=== PATIENT | male | born 1935 | race Caucasian/White ===

== ENCOUNTER 2021-08-16 15:01 | Inpatient (IN) | payer MEDICARE, BC ==
[2021-08-16] MEDS ORDERED: HYDROmorphone 0.5 MG/0.5 ML SYRINGE IVP STA (15:13)
--- NOTE | 2021-08-16 15:34 | ED ---
General Adult HPI - General Chief complaint: Extremity Injury, Lower Stated complaint: fall/hip pain Time Seen by Provider: 08/16/21 15:05 Source: patient, EMS, RN notes reviewed Mode of arrival: EMS Limitations: physical limitation - History of Present Illness Initial comments: Patient is a pleasant 86-year-old male presenting to the emergency department following a fall. Incident occurred prior to arrival. Patient's prosthetic leg got caught on a rug and he fell to the ground on his left hip. No head injury or loss of consciousness. No neck or back pain. Discomfort is severe with movement, mild to moderate at rest. No chest pain or dyspnea. 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 No history of previous injury. - Related Data Allergies Allergy/AdvReac Type Severity Reaction Status Date / Time No Known Allergies Allergy Verified 08/16/21 15:17 Review of Systems ROS Statement: Those systems with pertinent positive or pertinent negative responses have been documented in the HPI. ROS Other: All systems not noted in ROS Statement are negative. Constitutional: Denies: fever Eyes: Denies: eye pain ENT: Denies: ear pain Respiratory: Denies: cough Cardiovascular: Denies: chest pain Endocrine: Denies: fatigue Gastrointestinal: Denies: abdominal pain Genitourinary: Denies: dysuria Musculoskeletal: Reports: as per HPI Skin: Denies: rash Neurological: Denies: weakness Past Medical History Past Medical History: Coronary Artery Disease (CAD), Hypertension, Myocardial Infarction ([place]) History of Any Multi-Drug Resistant Organisms: None Reported Past Surgical History: Back Surgery, Coronary Bypass/CABG, Heart Catheterization With Stent, Orthopedic Surgery Additional Past Surgical History / Comment(s): Left bka, triple bypass, left shoulder surgery, 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 Past Psychological History: No Psychological Hx Reported Smoking Status: Never smoker Past Alcohol Use History: None Reported Past Drug Use History: None Reported General Exam Limitations: physical limitation General appearance: alert, in no apparent distress Head exam: Present: normocephalic Eye exam: Present: other (False eye on the right) ENT exam: Present: other (Appearance of surgical changes left ear) Neck exam: Present: normal inspection. Absent: tenderness Respiratory exam: Present: normal lung sounds bilaterally Cardiovascular Exam: Present: regular rate, normal rhythm GI/Abdominal exam: Present: soft. Absent: tenderness Extremities exam: Present: tenderness (Left lateral and anterior hip.), other ((BKA L) Neurological exam: Present: alert. Absent: motor sensory deficit Psychiatric exam: Present: normal affect, normal mood Skin exam: Present: normal color Course Vital Signs 08/16/21 15:06 Temperature 97.8 F Pulse Rate 89 Respiratory 18 Rate Blood Pressure 166/67 O2 Sat by Pulse 94 L Oximetry Medical Decision Making - Medical Decision Making Patient reevaluated. Patient and family updated. Case discussed with Dr. Morales, who will admit covering, orthopedics. - Radiology Data Radiology results: image reviewed (Chest x-ray shows possible atelectasis. Postoperative changes. X-ray left hip and pelvis shows left femoral neck fracture.) Disposition Clinical Impression: Femoral neck fracture Disposition: ADMITTED IP TO THIS HOSP Is patient prescribed a controlled substance at d/c from ED?: No Decision Time: 15:59
--- NOTE | 2021-08-16 15:52 | XR ---
EXAMINATION TYPE: XR Hip LT and AP Pelvis DATE OF EXAM: 08/16/2021 COMPARISON: NONE HISTORY: Trauma and pain TECHNIQUE: A single AP view of the pelvis is obtained. Two views of the hip are obtained. FINDINGS: There is subcapital proximal left femoral fracture with associated angulation and impactio n. No dislocation. Bone mineralization is reduced. Postop changes are noted to the lumbosacral spine, there is degenerative disc change. Osteophytic change noted in the right hip. Dense vascular calcifi cations are noted incidentally. IMPRESSION: Left hip fracture
--- NOTE | 2021-08-16 15:54 | XR ---
EXAMINATION TYPE: XR chest 1V DATE OF EXAM: 08/16/2021 COMPARISON: NONE HISTORY: Trauma and pain TECHNIQUE: Single frontal view of the chest is obtained. FINDINGS: There is no focal air space opacity, pleural effusion, or pneumothorax seen. The cardiac silhouette size is within normal limits. Patient is post median sternotomy. Sternal wire fracture n oted most inferiorly. Strand-like densities are present within the lungs possibly reflecting scarring or atelectasis. The aorta is dense. Biapical pleural thickening is noted. The osseous structures are intact. IMPRESSION: Postop changes. There may be some atelectasis or scarring greater in the right lung.
[2021-08-16] MEDS ORDERED: NALOXONE 0.4 MG/ML 1 ML VIAL IV PRN (16:11)
[2021-08-16] MEDS: HYDROmorphone 0.5 MG/0.5 ML SYRINGE IVP PRN (16:30)
[2021-08-16 16:57] LABS: Basophils # (A) 0.1 k/uL (0-0.2); Basophils % (A) 0 %; Eosinophils # (A) 0.1 k/uL (0-0.7); Eosinophils % (A) 1 %; HCT 34.1 % (39.0-53.0); HGB 11.1 gm/dL (13.0-17.5); Lymphocytes # (A) 1.6 k/uL (1.0-4.8); Lymphocytes % (A) 14 %; MCH 31.3 pg (25.0-35.0); MCHC 32.5 g/dL (31.0-37.0); MCV 96.3 fL (80.0-100.0); Mean Platelet Volume 8.3; Monocytes # (A) 0.8 k/uL (0-1.0); Monocytes % (A) 7 %; Neutrophils # (A) 8.9 k/uL (1.3-7.7); Neutrophils % (A) 77 %; Platelet Count 221 k/uL (150-450); RBC 3.54 m/uL (4.30-5.90); RDW 12.7 % (11.5-15.5); WBC 11.6 k/uL (3.8-10.6)
[2021-08-16 17:14] LABS: INR 0.9 (<1.2); Prothrombin Time 9.8 sec (9.0-12.0)
[2021-08-16 17:19] LABS: Partial Thromboplastin Time 21.7 sec (22.0-30.0)
--- NOTE | 2021-08-16 17:35 | P.HPOR ---
History of Present Illness H&P Date: 08/16/21 Chief Complaint: left hip pain Patient is a 86-year-old male presenting to the emergency room with left hip pain status post fall. Patient says he was at home when he stubbed his toe and he fell and landed on his left hip. Patient does say he uses a prosthetic on left leg with an amputation up to his left knee. Patient says he normally ambulates independently with cane to aid in assistance. Patient states the pain is mostly located at the lateral portion of the left hip as well as anterior portion of the hip. Patient denies radiation of pain anywhere. Patient denies any other trauma/injury throughout the rest body sustained from the fall. Patient does say he takes Plavix for blood thinner. Patient does say he has had multiple orthopedic surgeries in the past as well as a triple bypass and a stent in his heart. Patient denies chest pain, fever, shortness of breath, nausea, vomiting, change in vision, loss of bowel/bladder control, saddle anesthesia. 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 Past Psychological History: No Psychological Hx Reported Smoking Status: Never smoker Past Alcohol Use History: None Reported Past Drug Use History: None Reported Medications and Allergies Allergies Allergy/AdvReac Type Severity Reaction Status Date / Time No Known Allergies Allergy Verified 08/16/21 17:22 Physical Examination Inspection: Shortening and external rotation of left leg. Amputation up to left knee No evidence of open fractures. Negative for any ecchymosis. Negative for any significant discoloration other than as noted. Negative for nodules, erythe ma. Sensation: Sensation is intact in bilateral upper extremities symmetric, equal in distribution. Sensation is intact in bilateral lower extremities symmetric, equal in distribution Palpation: Significant tenderness to palpation over the proximal left femur laterally and anteriorly. Nontender to palpation throughout rest of exam Range of motion: Limited range of motion in the left leg due to patient being in significant pain. Decreased hip flexion in left leg. Bilateral upper extremities full range of motion in elbow extension/flexion as well as shoulder internal and external rotation abduction and forward elevation. Right lower ext remity full range of motion and knee flexion extension and hip flexion extension. Motor: Strength 5 out of 5 in upper extremities as well as sider mechanic strength. Right lower extremity 5/5 in resisted flexion extension and hip flexion extension. Left leg exam limited due to patient being in significant amount of pain Neurovascular status/tensioning signs: Refill under 3 seconds bilaterally in lower and upper extremities. Skin mildly warm to touch in hands bilaterally as well as bilaterally in the lower extremities. Dorsalis pedis pulses intact, 2+ bilaterally. Radial pulses intact, 2+ bilaterally. Negative Homans bilaterally. Negative Yolanda's bilaterally. Negative clonus upon dorsifl exing feet bilaterally. Results - Labs Labs: Abnormal Lab Results - Last 24 Hours (Table) 08/16/21 08/16/21 Range/Units 16:50 16:50 WBC 11.6 H (3.8-10.6) k/uL RBC 3.54 L (4.30-5.90) m/uL Hgb 11.1 L (13.0-17.5) gm/dL Hct 34.1 L (39.0-53.0) % Neutrophils # 8.9 H (1.3-7.7) k/uL APTT 21.7 L (22.0-30.0) sec H & H 08/16/21 Range/Units 16:50 Hgb 11.1 L (13.0-17.5) gm/dL Hct 34.1 L (39.0-53.0) % Coagulation 08/16/21 Range/Units 16:50 INR 0.9 (<1.2) Result Diagrams: 08/16/21 16:50 Assessment and Plan Assessment: 1. Left femoral neck fracture status post fall 2. Multiple medical comorbidities Plan: 1. Left femoral neck fracture status post fall - surgery scheduled for tomorrow, 1left hip hemiarthroplasty. Patient does need medical and cardiac clearance 2. Appreciate medical management and cardiac management - patient needs medical and cardiac clearance 3. Pain management - stable at this time. Continue oral and IV pain medication 4. PT/OT - nonweightbearing left leg Time with Patient: Less than 30
--- NOTE | 2021-08-16 17:53 | P.CONS ---
History of Present Illness - History of Present Illness Physical pleasant 86 years old male with past medical history of coronary artery disease status post stent placement and CABG, Hypertension, Presents because of fall today and injured his left hip Patient is visiting from [place] has history of left leg amputation about 43 ye ars ago secondary to work accident uses artificial leg today he was working on his porch when his toe got twisted and his son grabbed him but he fell on his left side and hit his left hip area followed by severe pain but he could walk forequarter block after that. He denies any dizziness, chest pain or syncope. No change in urine or bowel habits. No fever Patient uses to follow-up with Dr. Lynn border measurer and cutter before he goes to a [place] many years ago Vital showing elevated blood pressure 180/77, rest of vitals looks stable, he is saturating 94% on room air. mild leukocytosis of 11.6. hemoglobin 11.1. platelet normal EKG showing sinus rhythm which is normal at 83 BPM with first-degree AV block and no significant ST-T changes, right bundle branch block and QTC of 465. Chest x-ray: No acute process. Postop changes. There may be some atelectasis or scarring greater on the right lung Hip and pelvis x-ray: Left hip fracture He got Dilaudid and emergency room Review of Systems CONSTITUTIONAL: No fever, no malaise, no fatigue. HEENT: No recent visual problems or hearing problems. Denied any sore throat. CARDIOVASCULAR: No orthopnea, PND, no palpitations, no syncope. PULMONARY: No shortness of breath, no cough, no hemoptysis. GASTROINTESTINAL: No diarrhea, no nausea, no vomiting, no abdominal pain. Normoactive bowel sounds. NEUROLOGICAL: No headaches, no weakness, no numbness. HEMATOLOGICAL: Denies any bleeding or petechiae. GENITOURINARY: Denies any burning micturition, frequency, or urgency. MUSCULOSKELETAL/RHEUMATOLOGICAL: Denies any joint pain, swelling, or any muscle pain. ENDOCRINE: Denies any polyuria or polydipsia. 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 Past Psychological History: No Psychological Hx Reported Smoking Status: Never smoker Past Alcohol Use History: None Reported Past Drug Use History: None Reported Medications and Allergies Allergies Allergy/AdvReac Type Severity Reaction Status Date / Time No Known Allergies Allergy Verified 08/16/21 15:17 Physical Exam Vitals: Vital Signs Temp Pulse Resp BP Pulse Ox 08/16/21 16:34 87 18 180/77 94 L 08/16/21 15:06 97.8 F 89 18 166/67 94 L Intake and Output 08/16/21 08/16/21 08/16/21 06:59 14:59 22:59 Other: Weight 70.307 kg GENERAL: The patient is alert and oriented x3, not in any acute distress. Well developed, well nourished. HEENT: Pupils are round and equally reacting to light. EOMI. No scleral icterus. No conjunctival pallor. Normocephalic, atraumatic. No pharyngeal erythema. No thyromegaly. CARDIOVASCULAR: S1 and S2 present. No murmurs, rubs, or gallops. PULMONARY: Chest is clear to auscultation, no wheezing or crackles. ABDOMEN: Soft, nontender, nondistended, normoactive bowel sounds. No palpable organomegaly. -MUSCULOSKELETAL: No joint swelling or deformity. Left hip tenderness. 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 NEUROLOGICAL: Gross neurological examination did not reveal any focal deficits. SKIN: No rashes. No petechiae Results CBC & Chem 7: 08/16/21 16:50 Labs: Abnormal Lab Results - Last 24 Hours (Table) 08/16/21 Range/Units 16:50 WBC 11.6 H (3.8-10.6) k/uL RBC 3.54 L (4.30-5.90) m/uL Hgb 11.1 L (13.0-17.5) gm/dL Hct 34.1 L (39.0-53.0) % Neutrophils # 8.9 H (1.3-7.7) k/uL Assessment and Plan Assessment: Fall, without losing consciousness. Could be mechanical Left hip fracture secondary to above history of coronary artery disease status post stent placement and triple vessel CABG Hypertension Plan: This Is a pleasant 86 years old male presents with fall and left hip fracture Resume blood pressure medication. Resume aspirin. Plavix is on hold until cleared by border measurer and cutter We'll ask for cardiology consult for preop evaluation as patient couldn't be high-risk for surgery Obtain urinalysis and Labs and medication were reviewed.. Continue same treatment. Continue with symptomatic treatment. Resume home medication. Monitor lytes and vitals. DVT and GI prophylaxis. Further recommendations depends on the clinical course of the patient DVT prophylaxis: Subcutaneous heparin GI Prophylaxis: Pepcid PT/OT: Pending Prognosis is guarded Thank you for consulting us, we will follow up with you
[2021-08-16 17:56] LABS: ALT 15 U/L (4-49); AST 29 U/L (17-59); African American GFR (CKD) >90 (>60 ml/min/1.73 sqM); Albumin 3.9 g/dL (3.5-5.0); Alkaline Phosphatase 78 U/L (38-126); Anion Gap 8 mmol/L; Blood Urea Nitrogen 25 mg/dL (9-20); Calcium 9.4 mg/dL (8.4-10.2); Carbon Dioxide 23 mmol/L (22-30); Chloride 107 mmol/L (98-107); Glucose 108 mg/dL (74-99); Non-African American GFR(CKD) 82 (>60 ml/min/1.73 sqM); Potassium 4.5 mmol/L (3.5-5.1); Sodium 138 mmol/L (137-145); Total Bilirubin 0.6 mg/dL (0.2-1.3); Total Protein 6.6 g/dL (6.3-8.2)
[2021-08-16] MEDS: HYDROmorphone 1 MG/ML 1 ML SYRINGE IVP PRN (19:02)
[2021-08-16] MEDS: amLODIPine 5 MG TAB PO SCH (19:03)
[2021-08-16 19:23] LABS: Appearance,Urine Clear (Clear); Bilirubin,Urine Negative (Negative); Blood,Urine Negative (Negative); Color,Urine Yellow; Glucose,Urine (UA) Negative (Negative); Ketones,Urine Negative (Negative); Leukocyte Esterase,Urine Negative (Negative); Nitrite,Urine Negative (Negative); Protein,Urine Negative (Negative); Specific Gravity,Urine 1.018 (1.001-1.035); Urobilinogen,Urine <2.0 mg/dL (<2.0)
[2021-08-16] MEDS: TAMSULOSIN 0.4 MG CAP.ER.24H PO SCH (22:16)
[2021-08-16] MEDS: MONTELUKAST 10 MG TAB PO SCH (22:16)
[2021-08-16] MEDS: METOPROLOL TARTRATE 25 MG TAB PO SCH (22:16)
[2021-08-16] MEDS: PRAVASTATIN SODIUM 80 MG TAB PO SCH (22:17)
[2021-08-16] MEDS: HEPARIN SODIUM,PORCINE/PF 5,000 UNIT/0.5 ML SYRINGE SQ SCH (22:17)
[2021-08-17] MEDS: LEVOTHYROXINE 50 MCG TAB PO SCH (06:14)
[2021-08-17] MEDS: HYDROmorphone 0.5 MG/0.5 ML SYRINGE IVP PRN ×2 (06:19→22:04)
[2021-08-17] MEDS: FAMOTIDINE 20 MG TAB PO SCH (08:24)
[2021-08-17] MEDS: ASPIRIN 81 MG PO SCH (08:24)
[2021-08-17] MEDS: HEPARIN SODIUM,PORCINE/PF 5,000 UNIT/0.5 ML SYRINGE SQ SCH (08:24)
[2021-08-17] MEDS: amLODIPine 5 MG TAB PO SCH (08:24)
[2021-08-17] MEDS: lisinopriL 20 MG TAB PO SCH (08:25)
[2021-08-17] MEDS: METOPROLOL TARTRATE 25 MG TAB PO SCH ×2 (08:40→21:07)
[2021-08-17 08:43] LABS: African American GFR (CKD) >90 (>60 ml/min/1.73 sqM); Anion Gap 5 mmol/L; Blood Urea Nitrogen 21 mg/dL (9-20); Calcium 9.3 mg/dL (8.4-10.2); Carbon Dioxide 26 mmol/L (22-30); Chloride 105 mmol/L (98-107); Glucose 123 mg/dL (74-99); Non-African American GFR(CKD) 83 (>60 ml/min/1.73 sqM); Potassium 4.9 mmol/L (3.5-5.1); Sodium 136 mmol/L (137-145)
[2021-08-17] MEDS: HYDROmorphone 1 MG/ML 1 ML SYRINGE IVP PRN ×2 (09:39→12:39)
--- NOTE | 2021-08-17 10:44 | ECHOF ---
Referral Reason:LV function MEASUREMENTS -------- HEIGHT: 182.9 cm WEIGHT: 70.3 kg BP: 144/67 RVIDd: 3.2 cm (< 3.3) IVSd: 1.1 cm (0.6 - 1.1) LVIDd: 4.4 cm (3.9 - 5.3) LVPWd: 1.2 cm (0.6 - 1.1) IVSs: 1.6 cm LVIDs: 3.2 cm LVPWs: 1.5 cm LA Diam: 3.3 cm (2.7 - 3.8) LAESV Index (A-L): 24.72 ml/m Ao Diam: 3.3 cm (2.0 - 3.7) AV Cusp: 1.1 cm (1.5 - 2.6) MV EXCURSION: 15.792 mm (> 18.000) MV EF SLOPE: 61 mm/s (70 - 150) EPSS: 0.6 cm MV E Zak: 0.85 m/s MV DecT: 178 ms MV A Zak: 0.94 m/s MV E/A Ratio: 0.91 AV maxP.34 mmHg AV meanP.90 mmHg RAP: 5.00 mmHg RVSP: 32.85 mmHg FINDINGS -------- Sinus rhythm. This was a technically adequate study. The left ventricular size is normal. There is borderline concentric left ventricular hypertrophy. Overall left ventricular systolic function is normal with, an EF between 60 - 65 %. The right ventricle is normal in size. Normal LA size by volume 22+/-6 ml/m2. The right atrium is normal in size. Interatrial and interventricular septum intact. There is moderate aortic valve sclerosis. There is mild aortic regurgitation. There is moderate a ortic stenosis present. Peak/mean gradient across the Aortic Valve is 48.34mmHg / 29.90mmHg. Mild mitral annular calcification present. There is trace mitral regurgitation. Mild tricuspid regurgitation present. Right ventricular systolic pressure is normal at < 35 mmHg. Trace/mild (physiologic) pulmonic regurgitation. The aortic root size is normal. IVC Not well visulized. There is no pericardial effusion. CONCLUSIONS -------- 1. The left ventricular size is normal. 2. There is borderline concentric left ventricular hypertrophy. 3. Overall left ventricular systolic function is normal with, an EF between 60 - 65 %. 4. There is moderate aortic valve sclerosis. 5. There is mild aortic regurgitation. 6. There is moderate aortic stenosis present. 7. Peak/mean gradient across the Aortic Valve is 48.34mmHg / 29.90mmHg. 8. Mild mitral annular calcification present. 9. There is trace mitral regurgitation. 10. Mild tricuspid regurgitation present. 11. Trace/mild (physiologic) pulmonic regurgitation. FINANCE LECTURER: Molly Lambert RDCS
[2021-08-17 11:12] LABS: Basophils # (A) 0.07 X 10*3/uL (0.00-0.10); Basophils % (A) 0.7 %; Eosinophils # (A) 0.36 X 10*3/uL (0.04-0.35); Eosinophils % (A) 3.4 %; HCT 33.7 % (39.6-50.0); HGB 10.9 g/dL (13.0-17.0); Lymphocytes # (A) 1.88 X 10*3/uL (0.90-5.00); Lymphocytes % (A) 17.7 %; MCH 30.8 pg (27.0-32.0); MCHC 32.3 g/dL (32.0-37.0); MCV 95.2 fL (80.0-97.0); Mean Platelet Volume 11.1 fL (9.5-12.2); Monocytes # (A) 1.16 X 10*3/uL (0.20-1.00); Monocytes % (A) 10.9 %; Neutrophils # (A) 7.14 X 10*3/uL (1.80-7.70); Neutrophils % (A) 66.9 %; Platelet Count 200 X 10*3/uL (140-440); RBC 3.54 X 10*6/uL (4.40-5.60); RDW 13.6 % (11.5-14.5); WBC 10.65 X 10*3/uL (4.50-10.00)
--- NOTE | 2021-08-17 11:25 | P.PN ---
Subjective Physical pleasant 86 years old male with past medical history of coronary artery disease status post stent placement and CABG, Hypertension, Presents because of fall today and injured his left hip Patient is visiting from [place] has history of left leg amputation about 43 years ago secondary to work accident uses artificial leg today he was working on his porch when his toe got twisted and his son grabbed him but he fell on his left side and hit his left hip area followed by severe pain but he could walk forequarter block after that. He denies any dizziness, chest pain or syncope. No change in urine or bowel habits. No fever Patient uses to follow-up with Dr. Lynn ibm bpm developer before he goes to a [place] many years ago Vital showing elevated blood pressure 180/77, rest of vitals looks stable, he is saturating 94% on room air. mild leukocytosis of 11.6. hemoglobin 11.1. platelet normal EKG showing sinus rhythm which is normal at 83 BPM with first-degree AV block and no significant ST-T changes, right bundle branch block and QTC of 465. Chest x-ray: No acute process. Postop changes. There may be some atelectasis or scarring greater on the right lung Hip and pelvis x-ray: Left hip fracture He got Dilaudid and emergency room 08/17/2021 Patient clinically same as yesterday with no change, he has pain in his left hip with movement only. He denies chest pain or dyspnea. His breathing is quiet. No GI or urinary symptoms. His vitals are stable. Blood pressure 144/67. And he is saturating 98% on room air. BMP is unremarkable and urine analysis is negative. CBC is still pending Patient has a Valdez catheter Echocardiogram showing ejection fraction of 60-65% with moderate aortic stenosis Patient is already on aspirin. Plavix is on hold until after surgery to be cleared by orthopedic team. As per staff ibm bpm developer team evaluated the patient already for his surgery Objective - Vital Signs Vital signs: Vital Signs Temp 98.1 F 08/17/21 07:00 Pulse 90 08/17/21 07:00 Resp 18 08/17/21 07:00 BP 144/67 08/17/21 07:00 Pulse Ox 98 08/17/21 07:00 Intake & Output 08/16/21 08/17/21 08/17/21 18:59 06:59 18:59 Output Total 700 Balance -700 Weight 70.307 kg 70.307 kg Output: Urine 700 Other: Voiding Method Indwelling Catheter Indwelling Catheter - Exam GENERAL: The patient is alert and oriented x3, not in any acute distress. Well developed, well nourished. HEENT: Pupils are round and equally reacting to light. EOMI. No scleral icterus. No conjunctival pallor. Normocephalic, atraumatic. No pharyngeal erythema. No thyromegaly. -CARDIOVASCULAR: S1 and S2 present. Systolic murmurs, rubs, or gallops. PULMONARY: Chest is clear to auscultation, no wheezing or crackles. ABDOMEN: Soft, nontender, nondistended, normoactive bowel sounds. No palpable o rganomegaly. -MUSCULOSKELETAL: No joint swelling or deformity. Left hip tenderness. 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 NEUROLOGICAL: Gross neurological examination did not reveal any focal deficits. SKIN: No rashes. No petechiae - Labs CBC & Chem 7: 08/16/21 16:50 08/17/21 07:00 Labs: Abnormal Lab Results - Last 24 Hours (Table) 08/16/21 08/16/21 08/16/21 Range/Units 16:50 16:50 16:50 WBC 11.6 H (3.8-10.6) k/uL RBC 3.54 L (4.30-5.90) m/uL Hgb 11.1 L (13.0-17.5) gm/dL Hct 34.1 L (39.0-53.0) % Neutrophils # 8.9 H (1.3-7.7) k/uL APTT 21.7 L (22.0-30.0) sec Sodium (137-145) mmol/L BUN 25 H (9-20) mg/dL Glucose 108 H (74-99) mg/dL 08/17/21 Range/Units 07:00 WBC (3.8-10.6) k/uL RBC (4.30-5.90) m/uL Hgb (13.0-17.5) gm/dL Hct (39.0-53.0) % Neutrophils # (1.3-7.7) k/uL APTT (22.0-30.0) sec Sodium 136 L (137-145) mmol/L BUN 21 H (9-20) mg/dL Glucose 123 H (74-99) mg/dL Assessment and Plan Assessment: Fall, without losing consciousness. Could be mechanical Left hip fracture secondary to above history of coronary artery disease status post stent placement and triple vessel CABG Hypertension Moderate aortic stenosis Plan: This Is a pleasant 86 years old male presents with fall and left hip fracture Resume blood pressure medication. Resume aspirin. Plavix is on hold until cleared by orthopedic surgery team after the procedure cardiology consult evaluated the patient already for his surgery Patient is high-risk for this procedure brothers no absolute contraindication Labs and medication were reviewed.. Continue same treatment. Continue with symptomatic treatment. Resume home medication. Monitor lytes and vitals. DVT and GI prophylaxis. Further recommendations depends on the clinical course of the patient DVT prophylaxis: Subcutaneous heparin GI Prophylaxis: Pepcid PT/OT: Pending Prognosis is guarded Thank you for consulting us, we will follow up with you
--- NOTE | 2021-08-17 11:52 | P.CRDCN ---
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 He used to follow in the office with Dr. Lynn last seen in 2017, but moved to [place] and now follows with Dr. Matamoros there. We have been asked to see in consultation for preoperative evaluation. Patient presents emergency department after a fall. He is in [place] visiting family, he currently lives in [place]. He states he was walking outside and has an elevated cement sidewalk his prosthetic leg proceeded to get stuck, he didn't feel this, he ended up falling forward and he had an assisted fall with family member. X-ray of the pelvis revealed left hip fracture. Orthopedics evaluated the patient and plan for left hip hemiarthroplasty today. Patient family members at bedside. He states that he is very active at home normally prior to this incident, he is able to perform all his ADLs, go for walks without any difficulty. He most recently went to [facility] with his family members. He denies any chest pain, shortness of breath, lightheadedness, dizziness, palpitations or syncope. He denies dyspnea on exertion, orthopnea or PND. He states he likely follows up with Dr. Matamoros his steam generating powerplant mechanic in [place]. Since his stents placements he states he's been doing fairly well and his steam generating powerplant mechanic is monitoring his aortic stenosis. DIAGNOSTICS EKG reveals sinus rhythm, first-degree AV block, right bundle-branch block, heart rate 83 Echocardiogram revealed an EF of 6065 percent, mild aortic regurgitation, moderate aortic stenosis peak/mean gradient 48 mmHg/29 mmHg, trace mitral regurgitation, mild tricuspid regurgitation. Most recent stress test 2016 which revealed a small inferior wall fixed defect, no evidence of ischemia. Preserved LV function. Chest xray post median sternotomy, sternal fracture noted mostly inferiorly, aorta is dense, some atelectasis or scarring greater in the right lung. X-ray left hip and pelvis revealed left hip fracture. Laboratory reviewed, WBC 11.6, hemoglobin 11.1, platelets 221, sodium 136, potassium 4.9, BUN 21, serum creatinine 0.7, UA negative, COVID-19 PCR negative Current home cardiac medications include aspirin 81 mg daily, amlodipine 5 mg daily, Plavix 75 mg daily, Lopressor 25 mg twice a day, pravastatin 80 mg nightly REVIEW OF SYSTEMS At the time of my exam: CONSTITUTIONAL: Denies fever or chills. CARDIOVASCULAR: Denies chest pain, shortness of breath, orthopnea, PND or palpitations. RESPIRATORY: Denies cough. GASTROINTESTINAL: Denies abdominal pain, diarrhea, constipation, nausea or vomit ing. MUSCULOSKELETAL: +left hip pain NEUROLOGIC: Denies numbness, tingling, headacbe or weakness. ENDOCRINE: Denies fatigue, weight change, polydipsia or polyurina. GENITOURINARY: Denies burning, hematuria or urgency with micturation. HEMATOLOGIC: Denies history of anemia or bleeding. PHYSICAL EXAMINATION Blood pressure 144/67, heart rate 90, afebrile, maintaining saturations on 2 L nasal cannula CONSTITUTIONAL: No apparent distress. HEENT: Head is normocephalic. Pupils are equal, round. Sclerae anicteric. Mucous membranes of the mouth are moist. No JVD. No carotid bruit. CHEST EXAMINATION: Lungs are clear to auscultation. No chest wall tenderness is noted on palpation or with deep breathing. HEART EXAMINATION: Regular rate and rhythm. S1, S2 heard. Systolic murmur ABDOMEN: Soft, nontender. Positive bowel sounds. EXTREMITIES: left above the knee amputation, no lower extremity edma NEUROLOGIC EXAMINATION: Patient is awake, alert and oriented x3. ASSESSMENT Left femoral neck fracture Mechanical Fall Coronary artery disease status post 3 vessel CABG in 1999 ([id number]) and 2 stents placed 2 years ago Moderate Aortic stenosis Hypertension Dyslipidemia History of left leg amputation about 43 years ago secondary to work accident PLAN -Plan for left hip hemiarthroplasty today. -From a cardiology perspective, patient does have the following risk factors including ischemic heart disease, however, patient is able to perform >METs level of activity and does not have any acute cardiac conditions at this time. Patient is hemodynamically stable. Patient may proceed with surgery with no additional cardiac testing or procedures. -Patient did have his stents placed 2 years ago, ok to discontinue plavix and follow up with his primary steam generating powerplant mechanic Dr. Matamoros Nurse Practitioner note has been reviewed, I agree with a documented findings and plan of care. Patient was seen and examined. Past Medical History Past Medical History: Coronary Artery Disease (CAD), Hypertension, Myocardial Infarction (CT) Last Myocardial Infarction Date:: Unsure of date History of Any Multi-Drug Resistant Organisms: None Reported Past Surgical History: Back Surgery, Coronary Bypass/CABG, Heart Catheterization With Stent, Orthopedic Surgery Additional Past Surgical History / Comment(s): Left bka, triple bypass, left shoulder surgery, 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 Date of Last Stent Placement:: 2018 Past Psychological History: No Psychological Hx Reported Smoking Status: Never smoker Past Alcohol Use History: None Reported Past Drug Use History: None Reported Medications and Allergies Home Medications Medication Instructions Recorded Confirmed Type Aspirin EC [Ecotrin Low Dose] 81 mg PO DAILY 08/16/21 08/16/21 History Cetirizine HCl 10 mg PO DAILY 08/16/21 08/16/21 History Cholecalciferol [Vitamin D3 (10 10 mcg PO DAILY@119908/16/21 08/16/21 History Mcg = 400 Iu)] Clopidogrel [Plavix] 75 mg PO DAILY 08/16/21 08/16/21 History Cyanocobalamin (Vitamin B-12) 2,500 mcg SL DAILY@119908/16/21 08/16/21 History [Vitamin B-12] Famotidine 40 mg PO DAILY 08/16/21 08/16/21 History Ferrous Sulfate [Feosol] 325 mg PO DAILY@119908/16/21 08/16/21 History Fluticasone Nasal Holt [Flonase 1 spray EA NOSTRIL DAILY PRN 08/16/21 08/16/21 History Nasal Holt] Levothyroxine Sodium [Euthyrox] 50 mcg PO DAILY 08/16/21 08/16/21 History Metoprolol Tartrate [Lopressor] 25 mg PO BID 08/16/21 08/16/21 History Montelukast [Singulair] 10 mg PO HS 08/16/21 08/16/21 History [facility] Probiotic 1 tab PO DAILY@1200 08/16/21 08/16/21 History Pravastatin Sodium [Pravachol] 80 mg PO HS 08/16/21 08/16/21 History Ramipril 10 mg PO DAILY 08/16/21 08/16/21 History Tamsulosin HCl [Flomax] 0.4 mg PO HS 08/16/21 08/16/21 History Vit C/E/Zn/Coppr/Lutein/Zeaxan 1 cap PO BID 08/16/21 08/16/21 History [Preservision Areds 2 Softgel] amLODIPine [Norvasc] 5 mg PO DAILY 08/16/21 08/16/21 History Allergies Allergy/AdvReac Type Severity Reaction Status Date / Time No Known Allergies Allergy Verified 08/16/21 17:22 Physical Exam Vitals: Vital Signs Temp Pulse Pulse Resp BP BP Pulse Ox 08/17/21 07:00 98.1 F 90 18 144/67 98 08/17/21 01:20 98.7 F 82 18 166/73 98 08/17/21 01:15 98.7 F 82 18 166/73 98 08/17/21 01:10 98.7 F 82 18 166/73 98 08/16/21 22:20 114 H 18 170/83 99 08/16/21 20:13 99 20 177/82 98 08/16/21 18:10 93 18 183/79 100 08/16/21 16:34 87 18 180/77 94 L 08/16/21 15:06 97.8 F 89 18 166/67 94 L Intake and Output 08/16/21 08/17/21 08/17/21 22:59 06:59 14:59 Output Total 700 Balance -700 Output: Urine 700 Other: Voiding Method Indwelling Catheter Indwelling Catheter Weight 70.307 kg 70.307 kg Results 08/16/21 16:50 08/17/21 07:00 Cardiac Enzymes 08/16/21 Range/Units 16:50 AST 29 (17-59) U/L Coagulation 08/16/21 Range/Units 16:50 PT 9.8 (9.0-12.0) sec APTT 21.7 L (22.0-30.0) sec CBC 08/16/21 Range/Units 16:50 WBC 11.6 H (3.8-10.6) k/uL RBC 3.54 L (4.30-5.90) m/uL Hgb 11.1 L (13.0-17.5) gm/dL Hct 34.1 L (39.0-53.0) % Plt Count 221 (150-450) k/uL Comprehensive Metabolic Panel 08/16/21 08/17/21 Range/Units 16:50 07:00 Sodium 138 136 L (137-145) mmol/L Potassium 4.5 4.9 (3.5-5.1) mmol/L Chloride 107 105 (98-107) mmol/L Carbon Dioxide 23 26 (22-30) mmol/L BUN 25 H 21 H (9-20) mg/dL Creatinine 0.76 0.73 (0.66-1.25) mg/dL Glucose 108 H 123 H (74-99) mg/dL Calcium 9.4 9.3 (8.4-10.2) mg/dL AST 29 (17-59) U/L ALT 15 (4-49) U/L Alkaline Phosphatase 78 (38-126) U/L Total Protein 6.6 (6.3-8.2) g/dL Albumin 3.9 (3.5-5.0) g/dL Current Medications Generic Name Dose Route Start Last Admin Trade Name Freq PRN Reason Stop Dose Admin Amlodipine Besylate 5 mg 08/16/21 18:15 08/17/21 08:24 Amlodipine 5 Mg Tab PO Not Given DAILY [facility] Aspirin 81 mg 08/17/21 09:00 08/17/21 08:24 Aspirin 81 Mg PO Not Given DAILY [facility] Famotidine 40 mg 08/17/21 09:00 08/17/21 08:24 Famotidine 20 Mg Tab PO Not Given DAILY [facility] Heparin Sodium (Porcine) 5,000 unit 08/16/21 21:00 08/17/21 08:24 Heparin Sodium,Porcine/Pf 5,000 Unit/0.5 Ml Syringe SQ Not Given Q12HR [facility] Hydromorphone HCl 0.5 mg 08/16/21 16:11 08/17/21 06:19 Hydromorphone 0.5 Mg/0.5 Ml Syringe IVP 0.5 mg Q3HR PRN Administration Moderate Pain Hydromorphone HCl 1 mg 08/16/21 16:11 08/17/21 09:39 Hydromorphone 1 Mg/Ml 1 Ml Syringe IVP 1 mg Q3HR PRN Administration Severe Pain Levothyroxine Sodium 50 mcg 08/17/21 06:30 08/17/21 06:14 Levothyroxine 50 Mcg Tab PO 50 mcg DAILY@0630 [facility] Administration Lisinopril 40 mg 08/17/21 09:00 08/17/21 08:25 Lisinopril 20 Mg Tab PO Not Given DAILY [facility] Metoprolol Tartrate 25 mg 08/16/21 21:00 08/17/21 08:40 Metoprolol Tartrate 25 Mg Tab PO 25 mg BID [facility] Administration Montelukast Sodium 10 mg 08/16/21 21:00 08/16/21 22:16 Montelukast 10 Mg Tab PO 10 mg HS [facility] Administration Naloxone HCl 0.2 mg 08/16/21 16:11 Naloxone 0.4 Mg/Ml 1 Ml Vial IV Q2M PRN Opioid Reversal Pravastatin Sodium 80 mg 08/16/21 21:00 08/16/21 22:17 Pravastatin Sodium 80 Mg Tab PO 80 mg HS [facility] Administration Tamsulosin HCl 0.4 mg 08/16/21 21:00 08/16/21 22:16 Tamsulosin 0.4 Mg Cap.Er.24h PO 0.4 mg HS [facility] Administration Intake and Output 08/16/21 08/17/21 08/17/21 22:59 06:59 14:59 Output Total 700 Balance -700 Output: Urine 700 Other: Voiding Method Indwelling Catheter Indwelling Catheter Weight 70.307 kg 70.307 kg 08/16/21 16:50 08/17/21 07:00
[2021-08-17] MEDS ORDERED: SODIUM CHLORIDE 0.9% 700 ML IV ONE (13:38)
[2021-08-17] MEDS ORDERED: ONDANSETRON 4 MG/2 ML VIAL ONE (13:57)
[2021-08-17] MEDS ORDERED: ONDANSETRON 4 MG/2 ML VIAL IVP ONE ×2 (14:16)
[2021-08-17] MEDS ORDERED: DEXAMETHASONE SOD PHOSPHATE 4 MG/ML 1 ML VIAL IVP ONE (14:16)
[2021-08-17] MEDS ORDERED: SUCCINYLCHOLINE CHLORIDE 100 MG/5 ML SYR IV ONE (15:48)
[2021-08-17] MEDS ORDERED: fentaNYL (PF) 50 MCG/ML 2 ML AMP ONE (15:48)
[2021-08-17] MEDS ORDERED: PROPOFOL 10 MG/ML 20 ML VIAL IV ONE (15:48)
[2021-08-17] MEDS ORDERED: ceFAZolin 1,000 MG in SODIUM CHLORIDE 0.9% 1,000 ML IRRIGATION ONE (16:29)
[2021-08-17] MEDS ORDERED: LACTATED RINGERS 1,000 ML IV ONE (16:29)
[2021-08-17] MEDS ORDERED: NALOXONE 0.4 MG/ML 1 ML VIAL IV PRN (17:21)
[2021-08-17] MEDS ORDERED: HYDROmorphone 0.2 MG/1 ML SYRINGE IVP PRN (17:21)
--- NOTE | 2021-08-17 17:36 | P.OP ---
Date of Procedure: 08/17/21 Preoperative Diagnosis: Displaced left subcapital femoral neck fracture Postoperative Diagnosis: Same Procedure(s) Performed: Left hip hemiarthroplastypress-fitlateral approach Implants: Depuy Corail size [id number] collared press-fit femoral stem, 51 mm unipolar femoral head, -3 neck. Anesthesia: SALOMÓN Surgeon: Jeronimo Kang Commissary Helper #1: Gerardo Gonzalez Estimated Blood Loss (ml): 100 Pathology: other (Femoral head) Condition: stable Disposition: PACU Indications for Procedure: Patient is an 86-year-old male who presents after falling injuring his left hip. Upon evaluation he was noted to have evidence of a displaced left subcapital femoral neck fracture. Normally he is a community ambulator with a prosthesis for a left [id number] amputation. A discussion of the risks and benefits of operative intervention was made with patient and his family. He opted to proceed with surgery. Operative risks to include infection, neurovascular injury, development of blood clots, ligament discrepancy, fracture, instability and need for subsequent procedures was discussed. Informed consent was obtained. Operative Findings: As below Description of Procedure: The patient was brought to the operating room, and after induction of spinal anesthesia was placed in the lateral decubitus position. Bony prominences were appropriately padded. The pelvis was stabilized perpendicular to the floor with a pegboard. The left lower extremity was prepped and draped in normal fashion. A 12 cm incision was then made centered over the greater trochanter extending superiorly to level ASIS and distally along the femoral shaft. Skin and subcutaneous tissues were divided sharply. Electrocautery was used for hemostasis. The fascia hussain and gluteus mark fascia was split in line with the skin incision. Muscle fibers were bluntly dissected proximally. A self- retaining retractor was placed. The anterior and posterior margins of the gluteus medius muscles identified in the into two thirds detached the greater trochanter with electrocautery. The gluteus minimus tendon was identified and detached in a similar fashion. A T-shaped capsulotomy was performed. The cap sular flaps were tagged with #2 Ethibond suture. The femoral neck fracture was then identified. A lower neck cut was made at 45 the shaft with a sagittal saw to help facilitate head extraction. Head was then extracted with a corkscrew. It measured 51 millimeters . The acetabulum was inspected. No significant chondral injury was noted. Attention was then paid towards preparing the proximal femur. A box chisel was used to open the metaphyseal region. A canal finder was used to find the femoral canal. Sequential broaching was performed up to a size 11 broach with the leg perpendicular to the floor in 15 of anteversion. There was good rotational stability. A calcar mill was used to fashion the medial calcar. A -3 neck and to 1 mm unipolar head was placed. The hip was gently reduced. It was taken through range of motion and felt to be stable in flexion and extension with internal and external rotation. I felt there was adequate holiness of soft tissue tension. Hip was gently dislocated. The trial components were then removed. Pulsatile lavage was utilized. The final size 11 /125 collared femoral stem was inserted again with the leg perpendicular to the floor in 15 of anteversion. This was fully seated. Again there was good rotational stability. A -3 neck and 51 mm unipolar head was gently impacted. Hip was gently reduced. Again it was taken through range of motion felt to be stable in flexion and extension with internal and external rotation. Again I felt there was adequate holiness of soft tissue tension. Pulsatile lavage was again utilized. The capsular layer was closed with interrupted #2 Ethibond suture. The gluteus minimus and medius tendons reattached the greater trochanter with #2 Ethibond suture. The fascia hussain and gluteus mark fascia was closed with running #2 Ethibond suture. There is minimal drainage therefore a deep drain was not placed. The subcutaneous tissues were reapproximated interrupted 2-0 Vicryl sutures. Skin was reapproximated with 3-0 subcuticular strata fix suture. Skin tape and adhesive was applied. A sterile dressing was applied. The patient was then awoken from sedation and transferred to recovery room in fair condition. Blood loss was estimated 100 mL. No complications were incurred. Sponge and needle counts were correct at the end the case. Gerardo BENTON assisted during the major components the case to include positioning, exposure, implantation, and closure.
--- NOTE | 2021-08-17 18:32 | XR ---
PROCEDURE: XR Hip Limited LT - 1V DATE AND TIME: 08/17/2021 5:50 PM CLINICAL INDICATION: PHH; Status post hip surgery, assess surgical alignment TECHNIQUE: Department protocol COMPARISON: None FINDINGS: AP postoperative view. There is no evidence of fracture or malalignment. IMPRESSION: Postoperative left hip one view
[2021-08-17] MEDS: PRAVASTATIN SODIUM 80 MG TAB PO SCH (21:07)
[2021-08-17] MEDS: TAMSULOSIN 0.4 MG CAP.ER.24H PO SCH (21:07)
[2021-08-17] MEDS: MONTELUKAST 10 MG TAB PO SCH (21:07)
[2021-08-17] MEDS: SENNOSIDES-DOCUSATE SODIUM 1 EACH TAB PO SCH (21:07)
[2021-08-18] MEDS: LEVOTHYROXINE 50 MCG TAB PO SCH (05:55)
[2021-08-18] MEDS: amLODIPine 5 MG TAB PO SCH (07:40)
[2021-08-18] MEDS: FAMOTIDINE 20 MG TAB PO SCH (07:40)
[2021-08-18] MEDS: ASPIRIN 81 MG PO SCH (07:40)
[2021-08-18] MEDS: METOPROLOL TARTRATE 25 MG TAB PO SCH ×2 (07:40→20:07)
[2021-08-18] MEDS: lisinopriL 20 MG TAB PO SCH (07:40)
[2021-08-18] MEDS: HYDROmorphone 1 MG/ML 1 ML SYRINGE IVP PRN ×2 (07:41→17:53)
[2021-08-18] MEDS ORDERED: ENOXAPARIN 40 MG/0.4 ML SYRINGE SQ SCH (09:00)
[2021-08-18 09:39] LABS: Basophils # (A) 0.03 X 10*3/uL (0.00-0.10); Basophils % (A) 0.3 %; Eosinophils # (A) 0.01 X 10*3/uL (0.04-0.35); Eosinophils % (A) 0.1 %; HCT 30.4 % (39.6-50.0); HGB 9.7 g/dL (13.0-17.0); Lymphocytes # (A) 1.42 X 10*3/uL (0.90-5.00); Lymphocytes % (A) 13.9 %; MCH 31.2 pg (27.0-32.0); MCHC 31.9 g/dL (32.0-37.0); MCV 97.7 fL (80.0-97.0); Mean Platelet Volume 11.1 fL (9.5-12.2); Monocytes # (A) 1.29 X 10*3/uL (0.20-1.00); Monocytes % (A) 12.6 %; Neutrophils # (A) 7.44 X 10*3/uL (1.80-7.70); Neutrophils % (A) 72.8 %; Platelet Count 161 X 10*3/uL (140-440); RBC 3.11 X 10*6/uL (4.40-5.60); RDW 13.7 % (11.5-14.5); WBC 10.22 X 10*3/uL (4.50-10.00)
--- NOTE | 2021-08-18 11:00 | P.PN ---
Subjective Progress Note Date: 08/18/21 Principal diagnosis: Left hip femoral neck fracture Patient was seen at bedside this morning comfortably in chair. Patient rates his pain as 2 out of 10 currently. Patient states he did get up with physical therapy to move from the bed to the chair. He says he did not have prosthesis on when physical therapy was in room. Patient says he has been using incentive spirometer throughout the day. Patient says she has not had a bowel movement, however he says he did get some stool softener from nurse. Patient says he has been passing gas. Patient denies chest pain, fever, shortness breath, nausea, vomiting, change in vision, loss of bowel/bladder control Objective - Vital Signs Vital signs: Vital Signs Temp 97.8 F 08/18/21 07:29 Pulse 91 08/18/21 07:40 Resp 19 08/18/21 07:40 BP 165/61 08/18/21 07:29 Pulse Ox 99 08/18/21 07:29 Intake & Output 08/17/21 08/18/21 08/18/21 18:59 06:59 18:59 Intake Total 951 Output Total 300 300 Balance 651 -300 Intake: IV 951 Output: Urine 200 300 Estimated Blood Loss 100 Other: Voiding Method Indwelling Catheter Indwelling Catheter - Exam Inspection: Incision is CDI. No evidence of open fractures. Negative for any ecchymosis. Negative for any significant discoloration other than as noted. Negative for nodules, erythema. Sensation: Sensation is intact in bilateral upper extremities symmetric, equal in distribution. Sensation is intact in bilateral lower extremities symmetric, equal in distribution Palpation: Moderate TTP left femur laterally. Nontender to palpation throughout rest of exam Range of motion: Limited range of motion in the left leg due to patient being in pain. Bilateral upper extremities full range of motion in elbow extension/flexion as well as shoulder internal and external rotation abduction and forward elevation. Right lower extremity full range of motion and knee flexion extension and hip flexion extension. Plantar and dorsiflexion full range of motion bilaterally Motor: Strength 5 out of 5 in upper extremities as well as party coordinator strength. Right lower extremity 5/5 in resisted flexion extension and hip flexion extension. Left leg exam limited due to patient being in pain Neurovascular status/tensioning signs: Refill under 3 seconds bilaterally in lower and upper extremities. Skin mildly warm to touch in hands bilaterally as well as bilaterally in the lower extremities. Dorsalis pedis pulses intact, 2+ bilaterally. Radial pulses intact, 2+ bilaterally. Negative Homans right leg Negative Yolanda's bilaterally. Negative clonus upon dorsiflexing right foot - Labs CBC & Chem 7: 08/18/21 06:07 08/17/21 07:00 Labs: Abnormal Lab Results - Last 24 Hours (Table) 08/17/21 08/18/21 Range/Units 07:02 06:07 WBC 10.65 H 10.22 H (4.50-10.00) X 10*3/uL RBC 3.54 L 3.11 L (4.40-5.60) X 10*6/uL Hgb 10.9 L 9.7 L (13.0-17.0) g/dL Hct 33.7 L 30.4 L (39.6-50.0) % MCV 97.7 H (80.0-97.0) fL MCHC 31.9 L (32.0-37.0) g/dL Monocytes # 1.16 H 1.29 H (0.20-1.00) X 10*3/uL Eosinophils # 0.36 H 0.01 L (0.04-0.35) X 10*3/uL Assessment and Plan Assessment: 1. Postoperative day 1 status post left hip hemiarthroplasty Plan: 1. Left femoral neck fracture status post fall - surgery performed yesterday, 1left hip hemiarthroplasty. Patient seen this morning at bedside resting comfortably in chair. 2. Appreciate medical management and cardiac management 3. Pain management - stable at this time. Continue oral and IV pain medication 4. PT/OT - weightbearing as tolerated with walker for assistance 5. Encourage incentive spirometer use 6. DVT prophylaxis - Lovenox; plan is to resume Plavix and ddc Lovenox 7. GI ppx - Senna 8. Discharge planning - [facility] Patient: Less than 30
[2021-08-18] MEDS: HYDROcodone/APAP 7.5-325MG 1 EACH TAB PO PRN (13:45)
--- NOTE | 2021-08-18 17:44 | P.PN ---
Subjective Progress Note Date: 08/18/21 Principal diagnosis: Displaced left subcapital femoral neck fracture Left hip hemiarthroplasty Physical pleasant 86 years old male with past medical history of coronary artery disease status post stent placement and CABG, Hypertension, Presents because of fall today and injured his left hip Patient is visiting from [place] has history of left leg amputation about 43 years ago secondary to work accident uses artificial leg today he was working on his porch when his toe got twisted and his son grabbed him but he fell on his left side and hit his left hip area followed by severe pain but he could walk forequarter block after that. He denies any dizziness, chest pain or syncope. No change in urine or bowel habits. 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 mild leukocytosis of 11.6. hemoglobin 11.1. platelet normal EKG showing sinus rhythm which is normal at 83 BPM with first-degree AV block and no significant ST-T changes, right bundle branch block and QTC of 465. Chest x-ray: No acute process. Postop changes. There may be some atelectasis or scarring greater on the right lung Hip and pelvis x-ray: Left hip fracture He got Dilaudid and emergency room Objective - Vital Signs Vital signs: Vital Signs Temp 97.8 F 08/18/21 07:29 Pulse 91 08/18/21 07:40 Resp 19 08/18/21 07:40 BP 165/61 08/18/21 07:29 Pulse Ox 99 08/18/21 07:29 Intake & Output 08/17/21 08/18/21 08/18/21 18:59 06:59 18:59 Intake Total 951 Output Total 300 300 Balance 651 -300 Intake: IV 951 Output: Urine 200 300 Estimated Blood Loss 100 Other: Voiding Method Indwelling Catheter Indwelling Catheter - Exam GENERAL: The patient is alert and oriented x3, not in any acute distress. Well developed, well nourished. HEENT: Pupils are round and equally reacting to light. EOMI. No scleral icterus. No conjunctival pallor. Normocephalic, atraumatic. No pharyngeal erythema. No thyromegaly. -CARDIOVASCULAR: S1 and S2 present. Systolic murmurs, rubs, or gallops. PULMONARY: Chest is clear to auscultation, no wheezing or crackles. ABDOMEN: Soft, nontender, nondistended, normoactive bowel sounds. No palpable organomegaly. -MUSCULOSKELETAL: No joint swelling or deformity. Left hip tenderness. 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 NEUROLOGICAL: Gross neurological examination did not reveal any focal deficits. SKIN: No rashes. No petechiae - Labs CBC & Chem 7: 08/18/21 06:07 08/17/21 07:00 Labs: Abnormal Lab Results - Last 24 Hours (Table) 08/17/21 08/18/21 Range/Units 07:02 06:07 WBC 10.65 H 10.22 H (4.50-10.00) X 10*3/uL RBC 3.54 L 3.11 L (4.40-5.60) X 10*6/uL Hgb 10.9 L 9.7 L (13.0-17.0) g/dL Hct 33.7 L 30.4 L (39.6-50.0) % MCV 97.7 H (80.0-97.0) fL MCHC 31.9 L (32.0-37.0) g/dL Monocytes # 1.16 H 1.29 H (0.20-1.00) X 10*3/uL Eosinophils # 0.36 H 0.01 L (0.04-0.35) X 10*3/uL Assessment and Plan Assessment: Fall, without losing consciousness. Could be mechanical Left hip fracture secondary to above history of coronary artery disease status post stent placement and triple vessel CABG Hypertension Moderate aortic stenosis Plan: Resume blood pressure medication. Resume aspirin. Plavix is on hold until cleared by orthopedic surgery team after the procedure cardiology consult evaluated the patient already for his surgery Patient is high-risk for this procedure brothers no absolute contraindication Labs and medication were reviewed.. Continue same treatment. Continue with symptomatic treatment. Resume home medication. Monitor lytes and vitals. DVT and GI prophylaxis. Further recommendations depends on the clinical course of the patient DVT prophylaxis: Subcutaneous heparin GI Prophylaxis: Pepcid PT/OT: Pending
[2021-08-18] MEDS: MONTELUKAST 10 MG TAB PO SCH (20:07)
[2021-08-18] MEDS: PRAVASTATIN SODIUM 80 MG TAB PO SCH (20:07)
[2021-08-18] MEDS: TAMSULOSIN 0.4 MG CAP.ER.24H PO SCH (20:07)
[2021-08-18] MEDS: SENNOSIDES-DOCUSATE SODIUM 1 EACH TAB PO SCH (20:07)
[2021-08-19] MEDS: HYDROcodone/APAP 7.5-325MG 1 EACH TAB PO PRN ×2 (05:40→10:45)
[2021-08-19] MEDS: LEVOTHYROXINE 50 MCG TAB PO SCH (05:40)
[2021-08-19] MEDS: amLODIPine 5 MG TAB PO SCH (07:26)
[2021-08-19] MEDS: lisinopriL 20 MG TAB PO SCH (07:27)
[2021-08-19] MEDS: ASPIRIN 81 MG PO SCH (07:27)
[2021-08-19] MEDS: FAMOTIDINE 20 MG TAB PO SCH (07:27)
[2021-08-19] MEDS: CLOPIDOGREL 75 MG TAB PO SCH (07:27)
[2021-08-19] MEDS: METOPROLOL TARTRATE 25 MG TAB PO SCH ×2 (07:27→20:28)
--- NOTE | 2021-08-19 09:38 | P.PN ---
Subjective Progress Note Date: 08/19/21 Principal diagnosis: Left hip femoral neck fracture Patient was seen at bedside this morning with physical therapy. Patient did stand up from bedside and we did attempt to put prosthetic leg on left leg. We were not able to get the prosthetic on patient leg. Patient did stand on right leg with walker for assistance. Patient was not able to get to chair and sat back down in bed. Patient says his left hip facility at sore, however, he says is less painful than yesterday. Patient says he has been using incentive spirometer 10 times per hour. Patient denies chest pain, fever, shortness breath, nausea, vomiting, change in vision, loss of bowel/bladder control. Objective - Vital Signs Vital signs: Vital Signs Temp 99 F 08/19/21 08:42 Pulse 106 H 08/19/21 08:42 Resp 16 08/19/21 08:42 BP 123/57 08/19/21 08:42 Pulse Ox 96 08/19/21 08:42 Intake & Output 08/18/21 08/19/21 08/19/21 18:59 06:59 18:59 Intake Total 290 Output Total 300 300 Balance -10 -300 Intake: Intake, IV Titration 290 Amount Lactated Ringers 1,000 ml 240 @ 0 mls/hr IV .[facility] Rx#:[id number] ceFAZolin 2 gm In Sodium 50 Chloride 0.9% 50 ml @ 100 mls/hr IVPB Q8HR [facility] Rx# :[id number] Output: Urine 300 300 Other: Voiding Method Indwelling Catheter Indwelling Catheter - Exam Inspection: Incision is CDI. No evidence of open fractures. Negative for any ecchymosis. Negative for any significant discoloration other than as noted. Negative for nodules, erythema. Sensation: Sensation is intact in bilateral upper extremities symmetric, equal in distribution. Sensation is intact in bilateral lower extremities symmetric, equal in distribution Palpation: Moderate TTP left femur laterally. Nontender to palpation throughout rest of exam Range of motion: Limited range of motion in the left leg due to patient being in pain. Bilateral upper extremities full range of motion in elbow extension/flexion as well as shoulder internal and external rotation abduction and forward elevation. Right lower extremity full range of motion and knee flexion extension and hip flexion extension. Plantar and dorsiflexion full range of motion bilaterally Motor: Strength 5 out of 5 in upper extremities as well as plate slitter and inspector strength. Right lower extremity 5/5 in resisted flexion extension and hip flexion extension. Left leg exam limited due to patient being in pain Neurovascular status/tensioning signs: Refill under 3 seconds bilaterally in lower and upper extremities. Skin mildly warm to touch in hands bilaterally as well as bilaterally in the lower extremities. Dorsalis pedis pulses intact, 2+ bilaterally. Radial pulses intact, 2+ bilaterally. Negative Homans right leg Negative Yolanda's bilaterally. Negative clonus upon dorsiflexing right foot - Labs CBC & Chem 7: 08/18/21 06:07 08/17/21 07:00 Labs: Abnormal Lab Results - Last 24 Hours (Table) 08/18/21 Range/Units 06:07 WBC 10.22 H (4.50-10.00) X 10*3/uL RBC 3.11 L (4.40-5.60) X 10*6/uL Hgb 9.7 L (13.0-17.0) g/dL Hct 30.4 L (39.6-50.0) % MCV 97.7 H (80.0-97.0) fL MCHC 31.9 L (32.0-37.0) g/dL Monocytes # 1.29 H (0.20-1.00) X 10*3/uL Eosinophils # 0.01 L (0.04-0.35) X 10*3/uL Assessment and Plan Assessment: 1. Postoperative day 2 status post left hip hemiarthroplasty Plan: 1. Left femoral neck fracture status post fall - surgery performed , 1left hip hemiarthroplasty. Patient did get up with physical therapy today at bedside and stand on right leg. He did attempt to get prosthetic on left leg however were unsuccessful. We'll continue follow patient while in hospital and goal is to get prosthetic on and be able to use walker for assistance to get to bathroom and chair before going to rehab. 2. Appreciate medical management and cardiac management 3. Pain management - stable at this time. Continue oral and IV pain medication 4. PT/OT - weightbearing as tolerated with walker for assistance 5. Encourage incentive spirometer use 6. DVT prophylaxis - Lovenox; plan is to resume Plavix and ddc Lovenox 7. GI ppx - Senna 8. Discharge planning - plan discharge to rehab Saturday vs Saturday - [facility] Time with Patient: Less than 30
--- NOTE | 2021-08-19 18:47 | P.PN ---
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 He denies any dizziness, chest pain or syncope. No change in urine or bowel habits. No fever Patient uses to follow-up with Dr. Lynn secondary education professor before he goes to a [place] many years ago Vital showing elevated blood pressure 180/77, rest of vitals looks stable, he is saturating 94% on room air. mild leukocytosis of 11.6. hemoglobin 11.1. platelet normal EKG showing sinus rhythm which is normal at 83 BPM with first-degree AV block and no significant ST-T changes, right bundle branch block and QTC of 465. Chest x-ray: No acute process. Postop changes. There may be some atelectasis or scarring greater on the right lung Hip and pelvis x-ray: Left hip fracture He got Dilaudid and emergency room 08/19/2021 patient is seen and evaluated with multiple family members at bedside; complaints of swelling; has been elevating leg on a pillow vital signs are stable with temperature of 98.4, pulse 70, respirations 16 and blood pressure of 128/66, Laboratory review shows WBC 10.2, hemoglobin 9.7 which is down from 10.9 yesterday patient has been evaluated by physical therapy and plan is transfer to skilled rehab possibly on Saturday or Saturday Objective - Vital Signs Vital signs: Vital Signs Temp 99 F 08/19/21 08:42 Pulse 106 H 08/19/21 08:42 Resp 16 08/19/21 08:42 BP 123/57 08/19/21 08:42 Pulse Ox 96 08/19/21 08:42 Intake & Output 08/18/21 08/19/21 08/19/21 18:59 06:59 18:59 Intake Total 290 Output Total 300 300 Balance -10 -300 Intake: Intake, IV Titration 290 Amount Lactated Ringers 1,000 ml 240 @ 0 mls/hr IV .[facility] Rx#:[id number] ceFAZolin 2 gm In Sodium 50 Chloride 0.9% 50 ml @ 100 mls/hr IVPB Q8HR [facility] Rx# :[id number] Output: Urine 300 300 Other: Voiding Method Indwelling Catheter Indwelling Catheter - Exam GENERAL: The patient is alert and oriented x3, not in any acute distress. Well developed, well nourished. HEENT: Pupils are round and equally reacting to light. EOMI. No scleral icterus. No conjunctival pallor. Normocephalic, atraumatic. No pharyngeal erythema. No thyromegaly. -CARDIOVASCULAR: S1 and S2 present. Systolic murmurs, rubs, or gallops. PULMONARY: Chest is clear to auscultation, no wheezing or crackles. ABDOMEN: Soft, nontender, nondistended, normoactive bowel sounds. No palpable organomegaly. -MUSCULOSKELETAL: No joint swelling or deformity. Left hip tenderness. 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 NEUROLOGICAL: Gross neurological examination did not reveal any focal deficits. SKIN: No rashes. No petechiae - Labs CBC & Chem 7: 08/18/21 06:07 08/17/21 07:00 Assessment and Plan Assessment: Fall, without losing consciousness. Could be mechanical Left hip fracture secondary to above history of coronary artery disease status post stent placement and triple vessel CABG Hypertension Moderate aortic stenosis Plan: Resume blood pressure medication. Resume aspirin. Plavix is on hold until cleared by orthopedic surgery team after the procedure cardiology consult evaluated the patient already for his surgery Patient is high-risk for this procedure brothers no absolute contraindication Labs and medication were reviewed.. Continue same treatment. Continue with symptomatic treatment. Resume home medication. Monitor lytes and vitals. DVT and GI prophylaxis. Further recommendations depends on the clinical course of the patient DVT prophylaxis: Subcutaneous heparin GI Prophylaxis: Pepcid PT/OT: Pending
[2021-08-19] MEDS: TAMSULOSIN 0.4 MG CAP.ER.24H PO SCH (20:28)
[2021-08-19] MEDS: MONTELUKAST 10 MG TAB PO SCH (20:28)
[2021-08-19] MEDS: PRAVASTATIN SODIUM 80 MG TAB PO SCH (20:28)
[2021-08-19] MEDS: SENNOSIDES-DOCUSATE SODIUM 1 EACH TAB PO SCH (20:28)
[2021-08-20] MEDS: HYDROcodone/APAP 5-325MG 1 EACH TAB PO PRN ×2 (03:28→21:33)
[2021-08-20] MEDS: LEVOTHYROXINE 50 MCG TAB PO SCH (05:54)
[2021-08-20] MEDS: ASPIRIN 81 MG PO SCH (07:27)
[2021-08-20] MEDS: CLOPIDOGREL 75 MG TAB PO SCH (07:27)
[2021-08-20] MEDS: METOPROLOL TARTRATE 25 MG TAB PO SCH ×2 (07:27→21:32)
[2021-08-20] MEDS: FAMOTIDINE 20 MG TAB PO SCH (07:28)
[2021-08-20] MEDS: lisinopriL 20 MG TAB PO SCH (07:28)
[2021-08-20] MEDS: amLODIPine 5 MG TAB PO SCH (07:28)
[2021-08-20 08:57] LABS: Basophils # (A) 0.07 X 10*3/uL (0.00-0.10); Basophils % (A) 0.6 %; Eosinophils # (A) 0.38 X 10*3/uL (0.04-0.35); Eosinophils % (A) 3.4 %; HCT 26.8 % (39.6-50.0); HGB 8.7 g/dL (13.0-17.0); Lymphocytes # (A) 2.28 X 10*3/uL (0.90-5.00); Lymphocytes % (A) 20.6 %; MCH 30.9 pg (27.0-32.0); MCHC 32.5 g/dL (32.0-37.0); Mean Platelet Volume 10.9 fL (9.5-12.2); Monocytes # (A) 1.47 X 10*3/uL (0.20-1.00); Monocytes % (A) 13.3 %; Neutrophils # (A) 6.81 X 10*3/uL (1.80-7.70); Neutrophils % (A) 61.7 %; Platelet Count 173 X 10*3/uL (140-440); RBC 2.82 X 10*6/uL (4.40-5.60); RDW 13.2 % (11.5-14.5); WBC 11.05 X 10*3/uL (4.50-10.00)
--- NOTE | 2021-08-20 09:15 | P.PN ---
Subjective Progress Note Date: 08/20/21 Principal diagnosis: Left hip femoral neck fracture Patient was seen at bedside this morning with family at bedside. Patient says his pain is under little bit better control this morning compared to yesterday. He says he has been using incentive spirometer throughout the day. He says he will attempt to get up out of bed with physical therapy today and hopefully be able to get his prosthetic on his left leg. Patient denies chest pain, fever, shortness breath, nausea, vomiting, change in vision, loss of bowel/bladder control. Objective - Vital Signs Vital signs: Vital Signs Temp 98.5 F 08/20/21 06:55 Pulse 102 H 08/20/21 06:55 Resp 16 08/20/21 07:45 BP 135/53 08/20/21 06:55 Pulse Ox 95 08/20/21 06:55 Intake & Output 08/19/21 08/20/21 08/20/21 18:59 06:59 18:59 Intake Total 240 120 Output Total 900 950 Balance -900 -710 120 Intake: Intake, IV Titration 240 Amount Sodium Chloride 0.9% 700 240 ml @ 0 mls/hr IV .[facility] Rx#:[id number] Oral 120 Output: Urine 900 950 Other: Voiding Method Indwelling Catheter Indwelling Catheter Indwelling Catheter - Exam Inspection: Incision is CDI. No evidence of open fractures. Negative for any ecchymosis. Negative for any significant discoloration other than as noted. Negative for nodules, erythema. Sensation: Sensation is intact in bilateral upper extremities symmetric, equal in distribution. Sensation is intact in bilateral lower extremities symmetric, equal in distribution Palpation: Moderate TTP left femur laterally. Nontender to palpation through out rest of exam Range of motion: Limited range of motion in the left leg due to patient being in pain. Bilateral upper extremities full range of motion in elbow extension/f lexion as well as shoulder internal and external rotation abduction and forward elevation. Right lower extremity full range of motion and knee flexion extension and hip flexion extension. Plantar and dorsiflexion full range of motion bilaterally Motor: Strength 5 out of 5 in upper extremities as well as cnc operator machinist strength. Right lower extremity 5/5 in resisted flexion extension and hip flexion extension. Left leg exam limited due to patient being in pain Neurovascular status/tensioning signs: Refill under 3 seconds bilaterally in lower and upper extremities. Skin mildly warm to touch in hands bilaterally as well as bilaterally in the lower extremities. Dorsalis pedis pulses intact, 2+ bilaterally. Radial pulses intact, 2+ bilaterally. Negative Homans right leg Negative Yolanda's bilaterally. Negative clonus upon dorsiflexing right foot - Labs CBC & Chem 7: 08/20/21 06:15 08/17/21 07:00 Labs: Abnormal Lab Results - Last 24 Hours (Table) 08/20/21 Range/Units 06:15 WBC 11.05 H (4.50-10.00) X 10*3/uL RBC 2.82 L (4.40-5.60) X 10*6/uL Hgb 8.7 L (13.0-17.0) g/dL Hct 26.8 L (39.6-50.0) % Monocytes # 1.47 H (0.20-1.00) X 10*3/uL Eosinophils # 0.38 H (0.04-0.35) X 10*3/uL Assessment and Plan Assessment: 1. Postoperative day 3 status post left hip hemiarthroplasty Plan: 1. Left femoral neck fracture status post fall - surgery performed , 1left hip hemiarthroplasty. Patient did get up with physical therapy yesterday at bedside and stand on right leg. We did attempt to get prosthetic on left leg however were unsuccessful. The goal today is for the patient to get up at bedside put prosthetic alignment sit in chair next to bedside. We'll continue follow patient while in hospital and goal is to get prosthetic on and be able to use walker for assistance to get to bathroom and chair before going to rehab. 2. Appreciate medical management and cardiac management 3. Pain management - stable at this time. Continue oral and IV pain medication 4. PT/OT - weightbearing as tolerated with walker for assistance 5. Encourage incentive spirometer use 6. DVT prophylaxis - Lovenox; plan is to resume Plavix and ddc Lovenox 7. GI ppx - Senna 8. Discharge planning - plan [facility] Time [facility] Patient: Less than 30
--- NOTE | 2021-08-20 18:14 | P.PN ---
Subjective Progress Note Date: 08/20/21 Principal diagnosis: Displaced left subcapital femoral neck fracture Left hip hemiarthroplasty Physical pleasant 86 years old male with past medical history of coronary artery disease status post stent placement and CABG, Hypertension, Presents because of fall today and injured his left hip Patient is visiting from [place] has history of left leg amputation about 43 years ago secondary to work accident uses artificial leg today he was working on his porch when his toe got twisted and his son grabbed him but he fell on his left side and hit his left hip area followed by severe pain but he could walk forequarter block after that. He denies any dizziness, chest pain or syncope. No change in urine or bowel habits. No fever Patient uses to follow-up with Dr. Lynn project production engineer before he goes to a [place] many years ago Vital showing elevated blood pressure 180/77, rest of vitals looks stable, he is saturating 94% on room air. mild leukocytosis of 11.6. hemoglobin 11.1. platelet normal EKG showing sinus rhythm which is normal at 83 BPM with first-degree AV block and no significant ST-T changes, right bundle branch block and QTC of 465. Chest x-ray: No acute process. Postop changes. There may be some atelectasis or scarring greater on the right lung Hip and pelvis x-ray: Left hip fracture He got Dilaudid and emergency room 08/19/2021 patient is seen and evaluated with multiple family members at bedside; complaints of swelling; has been elevating leg on a pillow vital signs are stable with temperature of 98.4, pulse 70, respirations 16 and blood pressure of 128/66, Laboratory review shows WBC 10.2, hemoglobin 9.7 which is down from 10.9 yesterday patient has been evaluated by physical therapy and plan is transfer to skilled rehab possibly on Saturday or Saturday08/20/2021 Patient is seen and evaluated sitting up in bedside chair; family members at bedside; report patient somewhat more alert this morning Vital signs reveal temperature 98.5, pulse 102, respirations 16 and blood pressure 135/53 Orthopedic surgery is following and left leg prosthesis has been placed; patient is status post fall with left femoral neck fracture and left hip hemiarthroplasty on 08/17/2021; remains on oral and IV medications for pain control; PT on board for weightbearing as tolerated with walker for assistance; transferred to snf facility for rehab once cleared by orthopedic Objective - Vital Signs Vital signs: Vital Signs Temp 98.5 F 08/20/21 06:55 Pulse 102 H 08/20/21 06:55 Resp 16 08/20/21 07:45 BP 135/53 08/20/21 06:55 Pulse Ox 95 08/20/21 06:55 Intake & Output 08/19/21 08/20/21 08/20/21 18:59 06:59 18:59 Intake Total 240 120 Output Total 900 950 Balance -900 -710 120 Intake: Intake, IV Titration 240 Amount Sodium Chloride 0.9% 700 240 ml @ 0 mls/hr IV .[facility] Rx#:[id number] Oral 120 Output: Urine 900 950 Other: Voiding Method Indwelling Catheter Indwelling Catheter Indwelling Catheter - Exam GENERAL: The patient is alert and oriented x3, not in any acute distress. Well developed, well nourished. HEENT: Pupils are round and equally reacting to light. EOMI. No scleral icterus. No conjunctival pallor. Normocephalic, atraumatic. No pharyngeal erythema. No thyromegaly. -CARDIOVASCULAR: S1 and S2 present. Systolic murmurs, rubs, or gallops. PULMONARY: Chest is clear to auscultation, no wheezing or crackles. ABDOMEN: Soft, nontender, nondistended, normoactive bowel sounds. No palpable organomegaly. -MUSCULOSKELETAL: No joint swelling or deformity. Left hip tenderness. 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 NEUROLOGICAL: Gross neurological examination did not reveal any focal deficits. SKIN: No rashes. No petechiae - Labs CBC & Chem 7: 08/20/21 06:15 08/17/21 07:00 Labs: Abnormal Lab Results - Last 24 Hours (Table) 08/20/21 Range/Units 06:15 WBC 11.05 H (4.50-10.00) X 10*3/uL RBC 2.82 L (4.40-5.60) X 10*6/uL Hgb 8.7 L (13.0-17.0) g/dL Hct 26.8 L (39.6-50.0) % Monocytes # 1.47 H (0.20-1.00) X 10*3/uL Eosinophils # 0.38 H (0.04-0.35) X 10*3/uL Assessment and Plan Assessment: Fall, without losing consciousness. Could be mechanical Left hip fracture secondary to above history of coronary artery disease status post stent placement and triple vessel CABG Hypertension Moderate aortic stenosis Plan: Resume blood pressure medication. Resume aspirin. Plavix is on hold until cleared by orthopedic surgery team after the procedure cardiology consult evaluated the patient already for his surgery Patient is high-risk for this procedure brothers no absolute contraindication Labs and medication were reviewed.. Continue same treatment. Continue with symptomatic treatment. Resume home medication. Monitor lytes and vitals. DVT and GI prophylaxis. Further recommendations depends on the clinical course of the patient DVT prophylaxis: Subcutaneous heparin GI Prophylaxis: Pepcid PT/OT: Pending
[2021-08-20] MEDS: PRAVASTATIN SODIUM 80 MG TAB PO SCH (21:32)
[2021-08-20] MEDS: MONTELUKAST 10 MG TAB PO SCH (21:32)
[2021-08-20] MEDS: SENNOSIDES-DOCUSATE SODIUM 1 EACH TAB PO SCH (21:32)
[2021-08-20] MEDS: TAMSULOSIN 0.4 MG CAP.ER.24H PO SCH (21:33)
[2021-08-21] MEDS: LEVOTHYROXINE 50 MCG TAB PO SCH (06:27)
[2021-08-21] MEDS: amLODIPine 5 MG TAB PO SCH (07:46)
[2021-08-21] MEDS: CLOPIDOGREL 75 MG TAB PO SCH (07:46)
[2021-08-21] MEDS: ASPIRIN 81 MG PO SCH (07:46)
[2021-08-21] MEDS: METOPROLOL TARTRATE 25 MG TAB PO SCH ×2 (07:46→21:56)
[2021-08-21] MEDS: FAMOTIDINE 20 MG TAB PO SCH (07:46)
[2021-08-21] MEDS: lisinopriL 20 MG TAB PO SCH (07:46)
--- NOTE | 2021-08-21 08:56 | XR ---
EXAMINATION TYPE: XR chest 1V DATE OF EXAM: 08/21/2021 COMPARISON: Chest x-ray 08/16/2021 HISTORY: Postop fever, abnormal chest x-ray TECHNIQUE: Single frontal view of the chest is obtained. FINDINGS: Patient is post median sternotomy. Aorta is dense. Cardiac mediastinal silhouette is stabl e. Nodular density in the right midlung may represent granuloma. There are overlying artifacts. Biapi belkis pleural thickening is again seen. There is no evident pneumothorax or pleural effusion, no airspa ce disease. Suspect underlying emphysema with areas of upper lobe lucency, there is likely some assoc iated scarring. IMPRESSION: No acute process.
--- NOTE | 2021-08-21 10:34 | P.PN ---
Subjective Progress Note Date: 08/21/21 Principal diagnosis: Left hip femoral neck fracture Patient was seen at bedside this morning with family at bedside. Patient says his pain is under little bit better control this morning compared to yesterday. He says he has been using incentive spirometer throughout the day. He says he will attempt to get up out of bed with physical therapy today and hopefully stand and sit in the chair. Patient denies chest pain, fever, shortness breath, nausea, vomiting, change in vision, loss of bowel/bladder control. Objective - Vital Signs Vital signs: Vital Signs Temp 98.4 F 08/21/21 07:48 Pulse 98 08/21/21 07:48 Resp 17 08/21/21 07:48 BP 165/71 08/21/21 07:48 Pulse Ox 99 08/21/21 07:48 Intake & Output 08/20/21 08/21/21 08/21/21 18:59 06:59 18:59 Intake Total 240 380 Output Total 600 500 Balance -360 -120 Intake: Oral 240 380 Output: Urine 600 500 Other: Voiding Method Indwelling Catheter Urinal # Voids 1 - Exam Inspection: Incision is CDI. No evidence of open fractures. Negative for any ecchymosis. Negative for any significant discoloration other than as noted. Negative for nodules, erythema. Sensation: Sensation is intact in bilateral upper extremities symmetric, equal in distribution. Sensation is intact in bilateral lower extremities symmetric, equal in distribution Palpation: Moderate TTP left femur laterally. Nontender to palpation throughout rest of exam Range of motion: Limited range of motion in the left leg due to patient being in pain. Bilateral upper extremities full range of motion in elbow extension/flexion as well as shoulder internal and external rotation abduction and forward elevation. Right lower extremity full range of motion and knee flexion extension and hip flexion extension. Plantar and dorsiflexion full range of motion bilaterally Motor: Strength 5 out of 5 in upper extremities as well as marketing programs specialist strength. Right lower extremity 5/5 in resisted flexion extension and hip flexion extension. Left leg exam limited due to patient being in pain Neurovascular status/tensioning signs: Refill under 3 seconds bilaterally in lower and upper extremities. Skin mildly warm to touch in hands bilaterally as well as bilaterally in the lower extremities. Dorsalis pedis pulses intact, 2+ bilaterally. Radial pulses intact, 2+ bilaterally. Negative Homans right leg Negative Yolanda's bilaterally. Negative clonus upon dorsiflexing right foot - Labs CBC & Chem 7: 08/20/21 06:15 08/17/21 07:00 Assessment and Plan Assessment: 1. Postoperative day 4 status post left hip hemiarthroplasty Plan: 1. Left femoral neck fracture status post fall - surgery performed , 1left hip hemiarthroplasty. Patient did get up with physical therapy yesterday and place prosthetic on left leg and bear weight. Nurse did mention patient had an episode where he fainted, likely due to orthostatic hypotension. The goal today is for the patient to get up at bedside put prosthetic on and sit in chair next to bedside. We'll continue follow patient while in hospital and goal is to get prosthetic on and be able to use walker for assistance to get to bathroom and chair before going to rehab. 2. Appreciate medical management and cardiac management 3. Pain management - stable at this time. Continue oral and IV pain medication 4. PT/OT - weightbearing as tolerated with walker for assistance 5. Encourage incentive spirometer use 6. DVT prophylaxis - Lovenox; plan is to resume Plavix and dc Lovenox 7. GI ppx - Senna 8. Discharge planning - plan discharge to rehab tmrw, Saturday - 08/22/2021 - [facility] Time with Patient: Less than 30
[2021-08-21] MEDS: HYDROcodone/APAP 5-325MG 1 EACH TAB PO PRN (10:46)
--- NOTE | 2021-08-21 13:25 | P.PN ---
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 He denies any dizziness, chest pain or syncope. No change in urine or bowel habits. No fever Patient uses to follow-up with Dr. Lynn cloth beamer before he goes to a [place] many years ago Vital showing elevated blood pressure 180/77, rest of vitals looks stable, he is saturating 94% on room air. mild leukocytosis of 11.6. hemoglobin 11.1. platelet normal EKG showing sinus rhythm which is normal at 83 BPM with first-degree AV block and no significant ST-T changes, right bundle branch block and QTC of 465. Chest x-ray: No acute process. Postop changes. There may be some atelectasis or scarring greater on the right lung Hip and pelvis x-ray: Left hip fracture He got Dilaudid and emergency room 08/17/2021 Patient clinically same as yesterday with no change, he has pain in his left hip with movement only. He denies chest pain or dyspnea. His breathing is quiet. No GI or urinary symptoms. His vitals are stable. Blood pressure 144/67. And he is saturating 98% on room air. BMP is unremarkable and urine analysis is negative. CBC is still pending Patient has a Valdez catheter Echocardiogram showing ejection fraction of 60-65% with moderate aortic stenosis Patient is already on aspirin. Plavix is on hold until after surgery to be cleared by orthopedic team. As per staff cloth beamer team evaluated the patient already for his surgery Subjective: 08/21/2021 This is a pleasant 86 years old male who presents with displaced left subcapital femoral neck fracture status post left hip hemiarthroplasty on 08/17. Patient tolerated the procedure well and he was restarted his Plavix on the top of his baby aspirin 81 mg from home medication. Patient awake and alert however he is generally weak especially with movement. Yesterday he had fever of 101.2 No labs from today. However he has mild leukocytosis of 11.0 yesterday. Repeat chest x-ray today is negative. Urine analysis, blood culture and the pro calcitonin are pending. No antibiotics has been added pending workup. Infectious disease team were consulted Objective - Vital Signs Vital signs: Vital Signs Temp 98.4 F 08/21/21 07:48 Pulse 98 08/21/21 07:48 Resp 17 08/21/21 07:48 BP 165/71 08/21/21 07:48 Pulse Ox 99 08/21/21 07:48 Intake & Output 08/20/21 08/21/21 08/21/21 18:59 06:59 18:59 Intake Total 240 380 Output Total 600 500 Balance -360 -120 Intake: Oral 240 380 Output: Urine 600 500 Other: Voiding Method Indwelling Catheter Urinal # Voids 1 - Exam GENERAL: The patient is alert and oriented x3, not in any acute distress. Well developed, well nourished. HEENT: Pupils are round and equally reacting to light. EOMI. No scleral icterus. No conjunctival pallor. Normocephalic, atraumatic. No pharyngeal erythema. No thyromegaly. -CARDIOVASCULAR: S1 and S2 present. Systolic murmurs, rubs, or gallops. PULMONARY: Chest is clear to auscultation, no wheezing or crackles. ABDOMEN: Soft, nontender, nondistended, normoactive bowel sounds. No palpable organomegaly. -MUSCULOSKELETAL: No joint swelling or deformity. Left hip incision skin wound is clean and healing. 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 NEUROLOGICAL: Gross neurological examination did not reveal any focal deficits. SKIN: No rashes. No petechiae - Labs CBC & Chem 7: 08/20/21 06:15 08/17/21 07:00 Labs: Abnormal Lab Results - Last 24 Hours (Table) 08/21/21 Range/Units 11:13 C-Reactive Protein 31.0 H (<1.0) mg/dL Assessment and Plan Assessment: Fall, without losing consciousness. Could be mechanical Left hip fracture secondary to above , status post left hip arthroplasty Fever of unknown origin history of coronary artery disease status post stent placement and triple vessel CABG Hypertension Moderate aortic stenosis Plan: This Is a pleasant 86 years old male presents with fall and left hip fracture Resume blood pressure medication. Resume aspirin and Plavix Follow-up urine culture, blood culture and poorcalcitonin Labs and medication were reviewed.. Continue same treatment. Continue with symptomatic treatment. Resume home medication. Monitor lytes and vitals. DVT and GI prophylaxis. Further recommendations depends on the clinical course of the patient DVT prophylaxis: Per surgery team. Also Patient is already on aspirin and Plavix GI Prophylaxis: Pepcid PT/OT: Rehab Prognosis is guarded Thank you for consulting us, we will follow up with you
[2021-08-21 14:55] LABS: Appearance,Urine Cloudy (Clear); Bilirubin,Urine Negative (Negative); Blood,Urine Negative (Negative); Color,Urine Yellow; Glucose,Urine (UA) Negative (Negative); Ketones,Urine Negative (Negative); Leukocyte Esterase,Urine Trace (Negative); Mucus,Urine Few /hpf; Nitrite,Urine Negative (Negative); PH, Urine 5.5 (5.0-8.0); Protein,Urine 1+ (Negative); RBC,Urine 4 /hpf (0-5); Specific Gravity,Urine 1.023 (1.001-1.035); Squamous Epithelial Cell,Urine <1 /hpf (0-4); Urobilinogen,Urine <2.0 mg/dL (<2.0); WBC,Urine 2 /hpf (0-5)
[2021-08-21] MEDS: FERROUS SULFATE 325 MG TAB PO SCH (17:35)
[2021-08-21] MEDS: TAMSULOSIN 0.4 MG CAP.ER.24H PO SCH (21:56)
[2021-08-21] MEDS: SENNOSIDES-DOCUSATE SODIUM 1 EACH TAB PO SCH (21:56)
[2021-08-21] MEDS: MONTELUKAST 10 MG TAB PO SCH (21:56)
[2021-08-21] MEDS: PRAVASTATIN SODIUM 80 MG TAB PO SCH (21:56)
[2021-08-21] MEDS: VIT A,C & E-LUTEIN-MINERALS 1 EACH TAB PO SCH (21:57)
--- NOTE | 2021-08-21 23:01 | P.CONS ---
History of Present Illness - Reason for Consult Consult date: 08/21/21 Fever Requesting physician: Bobby E Rick - Chief Complaint fall and left hip pain x few days - History of Present Illness History of present illness : Patient is 86-year male presenting to the ER about a week ago on 08/16/2021 [place] did have a fall the patient per surgical leg got caught on a rug and he fell to the ground on his left hip patient was complaining of pain to the left wrist area no loss of any consciousness patient did have a x-ray of the hip with evidence of left hip fracture patient subsequently did have a surgery done the next day on 08/17/2021 in this patient who states left hip hemiarthroplasty patient subsequently has been in the hospital for postop care yesterday morning patient did spike a fever of 101.2 degree form height patient did mention to having some chills of late however no fever has been recorded since then patient is currently breathing comfortably on room air denies having any URI symptoms no chest pain shortness of breath or cough denies any nausea vomiting no abdominal pain or diarrhea pain to the left hip is currently controlled patient did have mild elevated white level of 1.05 yesterday patient did have a chest x-ray obtained this morning that was negative for acute pulmonary process infection was consulted for further management because of the fever that happened yesterday morning Review of system: CONSTITUTIONAL: Positive for weakness along with the fever. EYES: No complaint. ENT: No complaint. RESPIRATORY: No complaint. CARDIOVASCULAR: No complaint. GENITOURINARY: No complaint. GASTROINTESTINAL: No complaint. MUSCULOSKELETAL: As per history of present illness. INTEGUMENTARY: No complaint. PSYCHOLOGIC: No complaint. ENDOCRINE: No complaint. NEUROLOGIC: No complaint. Past medical history : Reviewed, documented below Past surgical history : Reviewed, documented below Social history: Reviewed, documented below Medications: Reviewed, as documented below EXAMINATION: Vital sigans= Reviewed and documented below GENERAL DESCRIPTION: Elderly male up in a chair, no distress. No tachypnea or accessory muscle of respiration use. HEENT: Shows Pallor , no scleral icterus. Oral mucous membrane is dry. NECK: Trachea central, no thyromegaly. LUNGS: Unlabored breathing. Decreased breath sound at the base. No wheeze or crackle. HEART: S1, S2, regular rate and rhythm. ABDOMEN: Soft, no tenderness , guarding or rigidity EXTREMITIES: Left hip incision is currently dressed no drainage on the dressing. SKIN: No rash, no masses palpable. NEUROLOGICAL: The patient is awake, alert, oriented x3, mood and affect normal. LABS AND RADIOLOGY: Reviewed results see below Assessment : Patient is 86-year male presented to the hospital a few days ago for a fall with a left hip pain in this position who did have left hip fracture s/p left hip hemiarthroplasty on 08/17/2021 in this patient who did have a fever morning of 08/20/2021 and no fever since then possible reactive/postsurgical or could be related to lead to possible pulmonary atelectasis as the patient currently do not have any obvious focus of infection vitals were significant elevated chest x-ray was negative urine is negative abdominal soft ankle examination and no evidence of any cellulitis at the left hip surgical site Plan: 1-blood cultures will be obtained and we will also check a procalcitonin level 2-advised incentive spirometry 3-hold on any systemic antibiotic therapy as the patient fever resolved without antibiotic We will follow on clinical condition and cultures to further adjust medication if needed Thank you for this consultation we will follow the patient along with you Past Medical History Past Medical History: Coronary Artery Disease (CAD), Hypertension, Myocardial Infarction ([place]) Last Myocardial Infarction Date:: Unsure of date History of Any Multi-Drug Resistant Organisms: None Reported Past Surgical History: Back Surgery, Coronary Bypass/CABG, Heart Catheterization With Stent, Orthopedic Surgery Additional Past Surgical History / Comment(s): Left bka, triple bypass, left shoulder surgery, 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 Date of Last Stent Placement:: 2018 Past Psychological History: No Psychological Hx Reported Smoking Status: Never smoker Past Alcohol Use History: None Reported Past Drug Use History: None Reported Medications and Allergies Home Medications Medication Instructions Recorded Confirmed Type Aspirin EC [Ecotrin Low Dose] 81 mg PO DAILY 08/16/21 08/16/21 History Cetirizine HCl 10 mg PO DAILY 08/16/21 08/16/21 History Cholecalciferol [Vitamin D3 (10 10 mcg PO DAILY@119908/16/21 08/16/21 History Mcg = 400 Iu)] Clopidogrel [Plavix] 75 mg PO DAILY 08/16/21 08/16/21 History Cyanocobalamin (Vitamin B-12) 2,500 mcg SL DAILY@1200 08/16/21 08/16/21 History [Vitamin B-12] Famotidine 40 mg PO DAILY 08/16/21 08/16/21 History Ferrous Sulfate [Feosol] 325 mg PO DAILY@1200 08/16/21 08/16/21 History Fluticasone Nasal [place] [Flonase 1 spray EA NOSTRIL DAILY PRN 08/16/21 08/16/21 History Nasal [place]] Levothyroxine Sodium [Euthyrox] 50 mcg PO DAILY 08/16/21 08/16/21 History Metoprolol Tartrate [Lopressor] 25 mg PO BID 08/16/21 08/16/21 History Montelukast [Singulair] 10 mg PO HS 08/16/21 08/16/21 History [facility] Probiotic 1 tab PO DAILY@1200 08/16/21 08/16/21 History Pravastatin Sodium [Pravachol] 80 mg PO HS 08/16/21 08/16/21 History Ramipril 10 mg PO DAILY 08/16/21 08/16/21 History Tamsulosin HCl [Flomax] 0.4 mg PO HS 08/16/21 08/16/21 History Vit C/E/Zn/Coppr/Lutein/Zeaxan 1 cap PO BID 08/16/21 08/16/21 History [Preservision Areds 2 Softgel] amLODIPine [Norvasc] 5 mg PO DAILY 08/16/21 08/16/21 History Allergies Allergy/AdvReac Type Severity Reaction Status Date / Time No Known Allergies Allergy Verified 08/16/21 17:22 Physical Exam Vitals: Vital Signs Temp Pulse Resp BP BP BP BP 08/21/21 18:57 98.1 F 101 H 17 144/60 08/21/21 14:00 97.8 F 100 18 125/45 08/21/21 10:35 123/49 08/21/21 10:32 114 H 107/34 08/21/21 10:30 96 144/62 08/21/21 07:48 98.4 F 98 17 165/71 08/21/21 02:00 98.1 F 92 17 156/66 Pulse Ox 08/21/21 18:57 98 08/21/21 14:00 100 08/21/21 10:35 08/21/21 10:32 08/21/21 10:30 08/21/21 07:48 99 08/21/21 02:00 98 Intake and Output 08/21/21 08/21/21 08/22/21 14:59 22:59 06:59 Other: # Voids 2 Results CBC & Chem 7: 08/20/21 06:15 08/17/21 07:00 Labs: Abnormal Lab Results - Last 24 Hours (Table) 08/21/21 08/21/21 Range/Units 11:13 14:00 C-Reactive Protein 31.0 H (<1.0) mg/dL Urine Protein 1+ H (Negative) Ur Leukocyte Esterase Trace H (Negative) Urine Mucus Few H (None) /hpf
[2021-08-22] MEDS: LEVOTHYROXINE 50 MCG TAB PO SCH (06:20)
[2021-08-22 07:21] LABS: African American GFR (CKD) >90 (>60 ml/min/1.73 sqM); Anion Gap 5 mmol/L; Blood Urea Nitrogen 26 mg/dL (9-20); Calcium 8.4 mg/dL (8.4-10.2); Carbon Dioxide 26 mmol/L (22-30); Chloride 102 mmol/L (98-107); Glucose 113 mg/dL (74-99); Non-African American GFR(CKD) 88 (>60 ml/min/1.73 sqM); Sodium 133 mmol/L (137-145)
[2021-08-22 07:36] LABS: C Reactive Protein 25.3 mg/dL (<1.0)
[2021-08-22] MEDS: VIT A,C & E-LUTEIN-MINERALS 1 EACH TAB PO SCH (08:10)
[2021-08-22] MEDS: amLODIPine 5 MG TAB PO SCH (08:10)
[2021-08-22] MEDS: FAMOTIDINE 20 MG TAB PO SCH (08:10)
[2021-08-22] MEDS: ASPIRIN 81 MG PO SCH (08:10)
[2021-08-22] MEDS: lisinopriL 20 MG TAB PO SCH (08:10)
[2021-08-22] MEDS: CLOPIDOGREL 75 MG TAB PO SCH (08:10)
[2021-08-22] MEDS: METOPROLOL TARTRATE 25 MG TAB PO SCH (08:11)
[2021-08-22] MEDS: FERROUS SULFATE 325 MG TAB PO SCH (08:11)
[2021-08-22 09:59] LABS: Basophils # (A) 0.07 X 10*3/uL (0.00-0.10); Basophils % (A) 0.7 %; Eosinophils # (A) 0.41 X 10*3/uL (0.04-0.35); HCT 25.5 % (39.6-50.0); HGB 8.4 g/dL (13.0-17.0); Lymphocytes # (A) 2.41 X 10*3/uL (0.90-5.00); Lymphocytes % (A) 23.4 %; MCH 31.6 pg (27.0-32.0); MCHC 32.9 g/dL (32.0-37.0); MCV 95.9 fL (80.0-97.0); Mean Platelet Volume 10.9 fL (9.5-12.2); Monocytes # (A) 1.48 X 10*3/uL (0.20-1.00); Monocytes % (A) 14.3 %; Neutrophils # (A) 5.89 X 10*3/uL (1.80-7.70); Platelet Count 229 X 10*3/uL (140-440); RBC 2.66 X 10*6/uL (4.40-5.60); RDW 13.2 % (11.5-14.5); WBC 10.32 X 10*3/uL (4.50-10.00)
--- NOTE | 2021-08-22 12:21 | P.PN ---
Subjective Physical pleasant 86 years old male with past medical history of coronary artery disease status post stent placement and CABG, Hypertension, Presents because of fall today and injured his left hip Patient is visiting from [place] has history of left leg amputation about 43 years ago secondary to work accident uses artificial leg today he was working on his porch when his toe got twisted and his son grabbed him but he fell on his left side and hit his left hip area followed by severe pain but he could walk forequarter block after that. He denies any dizziness, chest pain or syncope. No change in urine or bowel habits. No fever Patient uses to follow-up with Dr. Lynn muck miner blasting before he goes to a [place] many years ago Vital showing elevated blood pressure 180/77, rest of vitals looks stable, he is saturating 94% on room air. mild leukocytosis of 11.6. hemoglobin 11.1. platelet normal EKG showing sinus rhythm which is normal at 83 BPM with first-degree AV block and no significant ST-T changes, right bundle branch block and QTC of 465. Chest x-ray: No acute process. Postop changes. There may be some atelectasis or scarring greater on the right lung Hip and pelvis x-ray: Left hip fracture He got Dilaudid and emergency room 08/17/2021 Patient clinically same as yesterday with no change, he has pain in his left hip with movement only. He denies chest pain or dyspnea. His breathing is quiet. No GI or urinary symptoms. His vitals are stable. Blood pressure 144/67. And he is saturating 98% on room air. BMP is unremarkable and urine analysis is negative. CBC is still pending Patient has a Valdez catheter Echocardiogram showing ejection fraction of 60-65% with moderate aortic stenosis Patient is already on aspirin. Plavix is on hold until after surgery to be cleared by orthopedic team. As per staff muck miner blasting team evaluated the patient already for his surgery Subjective: 08/21/2021 This is a pleasant 86 years old male who presents with displaced left subcapital femoral neck fracture status post left hip hemiarthroplasty on 08/17. Patient tolerated the procedure well and he was restarted his Plavix on the top of his baby aspirin 81 mg from home medication. Patient awake and alert however he is generally weak especially with movement. Yesterday he had fever of 101.2 No labs from today. However he has mild leukocytosis of 11.0 yesterday. Repeat chest x-ray today is negative. Urine analysis, blood culture and the pro calcitonin are pending. No antibiotics has been added pending workup. Infectious disease team were consulted 08/22/2021 Patient is awake and alert. He denies any specific symptoms. As chest pain or dyspnea. No coughing. No diarrhea. No urinary complaint of burning with urination. No more fever. Last fever was 2 days ago. Workup was unremarkable including chest x-ray, urine analysis. Also blood culture. C-reactive protein is slightly elevated but trending down without antibiotic 31 down to 25.3. No need for antibiotics per ID team. Telemetry showed mild pause 1.5 seconds, cardiology team consulted Already on the case. Discussed with the staff Objective - Vital Signs Vital signs: Vital Signs Temp 98.1 F 08/22/21 07:54 Pulse 89 08/22/21 07:54 Resp 18 08/22/21 07:54 BP 157/64 08/22/21 07:54 Pulse Ox 98 08/22/21 07:54 Intake & Output 08/21/21 08/22/21 08/22/21 18:59 06:59 18:59 Output Total 250 Balance -250 Output: Urine 250 Other: Voiding Method Urinal # Voids 2 2 # Bowel Movements 0 - Exam GENERAL: The patient is alert and oriented x3, not in any acute distress. Well developed, well nourished. HEENT: Pupils are round and equally reacting to light. EOMI. No scleral icterus. No conjunctival pallor. Normocephalic, atraumatic. No pharyngeal erythema. No thyromegaly. -CARDIOVASCULAR: S1 and S2 present. Systolic murmurs, rubs, or gallops. PULMONARY: Chest is clear to auscultation, no wheezing or crackles. ABDOMEN: Soft, nontender, nondistended, normoactive bowel sounds. No palpable organomegaly. -MUSCULOSKELETAL: No joint swelling or deformity. Left hip incision skin wound is clean and healing. 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 NEUROLOGICAL: Gross neurological examination did not reveal any focal deficits. SKIN: No rashes. No petechiae - Labs CBC & Chem 7: 08/22/21 06:09 08/22/21 06:09 Labs: Abnormal Lab Results - Last 24 Hours (Table) 08/21/21 08/21/21 08/22/21 Range/Units 11:13 14:00 06:09 WBC 10.32 H (4.50-10.00) X 10*3/uL RBC 2.66 L (4.40-5.60) X 10*6/uL Hgb 8.4 L (13.0-17.0) g/dL Hct 25.5 L (39.6-50.0) % Immature Gran # 0.06 H (0.00-0.04) X 10*3/uL Monocytes # 1.48 H (0.20-1.00) X 10*3/uL Eosinophils # 0.41 H (0.04-0.35) X 10*3/uL Sodium (137-145) mmol/L BUN (9-20) mg/dL Creatinine (0.66-1.25) mg/dL Glucose (74-99) mg/dL C-Reactive Protein 31.0 H (<1.0) mg/dL Urine Protein 1+ H (Negative) Ur Leukocyte Esterase Trace H (Negative) Urine Mucus Few H (None) /hpf 08/22/21 Range/Units 06:09 WBC (4.50-10.00) X 10*3/uL RBC (4.40-5.60) X 10*6/uL Hgb (13.0-17.0) g/dL Hct (39.6-50.0) % Immature Gran # (0.00-0.04) X 10*3/uL Monocytes # (0.20-1.00) X 10*3/uL Eosinophils # (0.04-0.35) X 10*3/uL Sodium 133 L (137-145) mmol/L BUN 26 H (9-20) mg/dL Creatinine 0.65 L (0.66-1.25) mg/dL Glucose 113 H (74-99) mg/dL C-Reactive Protein 25.3 H (<1.0) mg/dL Urine Protein (Negative) Ur Leukocyte Esterase (Negative) Urine Mucus (None) /hpf Assessment and Plan Assessment: Fall, without losing consciousness. Could be mechanical Left hip fracture secondary to above , status post left hip arthroplasty Mild pause of 1.5 second on telemetry Fever of unknown origin, most likely postop related. Resolved with No evidence of infection. No need for antibiotics per ID team history of coronary artery disease status post stent placement and triple vessel CABG Hypertension Moderate aortic stenosis Plan: This Is a pleasant 86 years old male presents with fall and left hip fracture Resume blood pressure medication. Resume aspirin and Plavix ID team on the case for his fever Consults cardiology team for his cardiac pauses on telemetry Labs and medication were reviewed.. Continue same treatment. Continue with symptomatic treatment. Resume home medication. Monitor lytes and vitals. DVT and GI prophylaxis. Further recommendations depends on the clinical course of the patient DVT prophylaxis: Per surgery team. Also Patient is already on aspirin and Plavix GI Prophylaxis: Pepcid PT/OT: Rehab Prognosis is guarded Thank you for consulting us, we will follow up with you
--- NOTE | 2021-08-22 12:40 | P.PN ---
Subjective Progress Note Date: 08/22/21 Principal diagnosis: Left hip femoral neck fracture Patient was seen at bedside this morning with in the room. Patient is resting comfortably semirecumbent in bed. Patient says he is doing better over past couple days as far as pain control. He says he did get up with therapy therapy yesterday was able to get prostatic on left leg. He says he got to the bathroom using walker with assistance as well as in the chair next to bed. He says he has been using incentive spirometer throughout the day. Patient denies chest pain, fever, shortness breath, nausea, vomiting, change in vision, loss of bowel/bladder control Objective - Vital Signs Vital signs: Vital Signs Temp 98.1 F 08/22/21 07:54 Pulse 89 08/22/21 07:54 Resp 18 08/22/21 07:54 BP 157/64 08/22/21 07:54 Pulse Ox 98 08/22/21 07:54 Intake & Output 08/21/21 08/22/21 08/22/21 18:59 06:59 18:59 Output Total 250 Balance -250 Output: Urine 250 Other: Voiding Method Urinal # Voids 2 2 # Bowel Movements 0 - Exam Inspection: Incision is CDI. No evidence of open fractures. Ecchymoses present just distal to incision on left hip. Mild swelling. Negative for any significant discoloration other than as noted. Negative for nodules, erythema. Sensation: Sensation is intact in bilateral upper extremities symmetric, equal in distribution. Sensation is intact in bilateral lower extremities symmetric, equal in distribution Palpation: Mild TTP left femur laterally. Nontender to palpation throughout rest of exam Range of motion: Limited range of motion in the left leg due to patient being in pain. Bilateral upper extremities full range of motion in elbow extens ion/flexion as well as shoulder internal and external rotation abduction and forward elevation. Right lower extremity full range of motion and knee flexion extension and hip flexion extension. Plantar and dorsiflexion full range of motion bilaterally Motor: Strength 5 out of 5 in upper extremities as well as electric motor control assembler strength. Right lower extremity 5/5 in resisted flexion extension and hip flexion extension. Left leg exam limited due to patient being in pain Neurovascular status/tensioning signs: Refill under 3 seconds bilaterally in lower and upper extremities. Skin mildly warm to touch in hands bilaterally as well as bilaterally in the lower extremities. Dorsalis pedis pulses intact, 2+ bilaterally. Radial pulses intact, 2+ bilaterally. Negative Homans right leg Negative Yolanda's bilaterally. Negative clonus upon dorsiflexing right foot - Labs CBC & Chem 7: 08/22/21 06:09 08/22/21 06:09 Labs: Abnormal Lab Results - Last 24 Hours (Table) 08/21/21 08/22/21 08/22/21 Range/Units 14:00 06:09 06:09 WBC 10.32 H (4.50-10.00) X 10*3/uL RBC 2.66 L (4.40-5.60) X 10*6/uL Hgb 8.4 L (13.0-17.0) g/dL Hct 25.5 L (39.6-50.0) % Immature Gran # 0.06 H (0.00-0.04) X 10*3/uL Monocytes # 1.48 H (0.20-1.00) X 10*3/uL Eosinophils # 0.41 H (0.04-0.35) X 10*3/uL Sodium 133 L (137-145) mmol/L BUN 26 H (9-20) mg/dL Creatinine 0.65 L (0.66-1.25) mg/dL Glucose 113 H (74-99) mg/dL C-Reactive Protein 25.3 H (<1.0) mg/dL Urine Protein 1+ H (Negative) Ur Leukocyte Esterase Trace H (Negative) Urine Mucus Few H (None) /hpf Assessment and Plan Assessment: 1. Postoperative day 5 status post left hip hemiarthroplasty Plan: 1. Left femoral neck fracture status post fall - surgery performed , 1left hip hemiarthroplasty. Patient did get up with physical therapy yesterday and place prosthetic on left leg and bear weight and transfer to chair and walk to bathroom using walker with assistance. Patient stable at bedside t his morning. ID signed off. I did talk with [facility] and she has cleared patient as well. Patient orthopedically stable today for discharge to rehab. 2. Appreciate medical management and cardiac management 3. Pain management - stable at this time. Continue oral pain medication 4. PT/OT - weightbearing as tolerated with walker for assistance 5. Encourage incentive spirometer use 6. DVT prophylaxis - Plavix 7. GI ppx - Senna 8. Discharge planning - plan discharge to rehab today, Saturday - 08/22/2021 - Gera Stanton Time with Patient: Less than 30
--- NOTE | 2021-08-22 12:55 | P.DS ---
Providers Date of admission: 08/16/21 16:11 Expected date of discharge: 08/22/21 Attending physician: Jeronimo Kang Consults: 08/16/21 16:19 Consult Physician Urgent Consulting Provider: Bobby Cabrera Consult Reason/Comments: medical care Do you want consulting provider notified?: Already Contacted 08/16/21 17:04 Consult Physician Urgent Consulting Provider: Eliseo De La Torre Consult Reason/Comments: Cardiac Clearance - left hip hemiarthroplasty surgery Do you want consulting provider notified?: Yes 08/16/21 17:51 Consult Physician Urgent Consulting Provider: Zuleika Lynn Consult Reason/Comments: Preop evaluation Do you want consulting provider notified?: Yes, Notify in am 08/17/21 17:21 Consult Physician Routine Consulting Provider: Cristal Garrett Consult Reason/Comments: medical management s/p left hip hemiarthroplasty Do you want consulting provider notified?: Yes 08/21/21 07:54 Consult Physician Urgent Consulting Provider: Carole Buckner Consult Reason/Comments: fever Do you want consulting provider notified?: Yes Primary care physician: Stated None Hospital Course: Date of admission: 08/16/2021 Date of discharge: 08/22/2021 Admission diagnosis: Left hip femoral neck fracture Discharge diagnosis: Same Attending physician: Dr. Kang Surgical procedures: Left hip hemiarthroplasty Brief history: Patient is a 86-year-old male with a history of left hip femoral neck fracture status post fall. At this point patient has failed conservative treatment measures and has opted to proceed with a elective left hip hemiarthroplasty. Hospital course: Details of patient's surgery can be found in operative report. Patient tolerated the procedure well and was subsequently transported to orthopedic floor. Patient's orthopeidc and medical care was provided daily. Patient had daily laboratory tests performed for evaluation of overall blood counts. Patient had daily physical therapy to include strengthening range of motion as well as education with walker ambulation. Patient was treated with Plavix for their postoperative DVT prophylaxis during their inpatient stay. Patient was noted to have a relatively uneventful postoperative course. Patient reported satisfactory pain control with oral pain medications by postoperative day 5. Patient showed satisfactory progress with physical therapy. Patient moved steadily through the program and had no difficulty meeting the goals by postoperative day 5. Given patient's otherwise satisfactory course and having met physical therapy goals, plan is to discharge patient to rehab on postoperative day 5. Discharge condition/disposition: Patient will be discharged to rehab in stable condition. Discharge medications: Instructions are given on resumption of patient's normal daily medications per primary care recommendation, in addition patient will be prescribed Grimes 5 mg/325 mg; Colace; continue 75 mg Plavix daily for DVT prophylaxis. Discharge instructions: 1. Wound care and infection precautions, keep incision dry and covered while showering, no lotions, creams, moisturizers. No soaking, tubs, pools, hottubs. Do not scrub over the incision. 2. Weight-bear as tolerated with walker / cane until follow-up. 3. Ice and elevate when necessary. Do not exceed 20 minutes per hour with ice pack.. 4. Pain meds and anticoagulants per prescription. 5. Pain medication has potential to cause constipation. Increase oral fluid and fiber intake. Contact primary care provider if you have not had a bowel movement within 48 hours after discharge 6. No anti-inflammatory medication until discussed at first post operative visit, this including Motrin, Aleve, Mobic, Diclofenac. 7. Follow up in office at 2 weeks postop with Adrian Bautista PA-C / Gerardo Gonzalez PA-C 8. Follow up with your primary care doctor 7-10 days after discharge. 9. Contact [facility] with any questions, . Assessment: Left hip femoral neck fracture Procedures: Left hip hemiarthroplasty Patient Condition at Discharge: Good Plan - Discharge Summary Discharge Rx Participant: No New Discharge Prescriptions: New Docusate [Colace] 100 mg PO DAILY #30 HYDROcodone/APAP 5-325MG [Grimes 5-325] 1 tab PO Q6HR PRN #28 tab PRN Reason: Pain No Action Vit C/E/Zn/Coppr/Lutein/Zeaxan [Preservision Areds 2 Softgel] 1 cap PO BID Ferrous Sulfate [Feosol] 325 mg PO DAILY@1200 [facility] Probiotic 1 tab PO DAILY@1200 Montelukast [Singulair] 10 mg PO HS Clopidogrel [Plavix] 75 mg PO DAILY amLODIPine [Norvasc] 5 mg PO DAILY Cetirizine HCl 10 mg PO DAILY Tamsulosin HCl [Flomax] 0.4 mg PO HS Fluticasone Nasal Derry [Flonase Nasal Derry] 1 spray EA NOSTRIL DAILY PRN PRN Reason: Allergy Symptoms Cholecalciferol [Vitamin D3 (10 Mcg = 400 Iu)] 10 mcg PO DAILY@1200 Pravastatin Sodium [Pravachol] 80 mg PO HS Metoprolol Tartrate [Lopressor] 25 mg PO BID Levothyroxine Sodium [Euthyrox] 50 mcg PO DAILY Famotidine 40 mg PO DAILY Cyanocobalamin (Vitamin B-12) [Vitamin B-12] 2,500 mcg SL DAILY@1200 Aspirin EC [Ecotrin Low Dose] 81 mg PO DAILY Ramipril 10 mg PO DAILY Discharge Medication List Aspirin EC [Ecotrin Low Dose] 81 mg PO DAILY 08/16/21 [History] Cetirizine HCl 10 mg PO DAILY 08/16/21 [History] Cholecalciferol [Vitamin D3 (10 Mcg = 400 Iu)] 10 mcg PO DAILY@1200 08/16/21 [History] Clopidogrel [Plavix] 75 mg PO DAILY 08/16/21 [History] Cyanocobalamin (Vitamin B-12) [Vitamin B-12] 2,500 mcg SL DAILY@1200 08/16/21 [History] Famotidine 40 mg PO DAILY 08/16/21 [History] Ferrous Sulfate [Feosol] 325 mg PO DAILY@119908/16/21 [History] Fluticasone Nasal Derry [Flonase Nasal Derry] 1 spray EA NOSTRIL DAILY PRN 08/16/21 [History] Levothyroxine Sodium [Euthyrox] 50 mcg PO DAILY 08/16/21 [History] Metoprolol Tartrate [Lopressor] 25 mg PO BID 08/16/21 [History] Montelukast [Singulair] 10 mg PO HS 08/16/21 [History] [facility] Probiotic 1 tab PO DAILY@1200 08/16/21 [History] Pravastatin Sodium [Pravachol] 80 mg PO HS 08/16/21 [History] Ramipril 10 mg PO DAILY 08/16/21 [History] Tamsulosin HCl [Flomax] 0.4 mg PO HS 08/16/21 [History] Vit C/E/Zn/Coppr/Lutein/Zeaxan [Preservision Areds 2 Softgel] 1 cap PO BID 08/16/21 [History] amLODIPine [Norvasc] 5 mg PO DAILY 08/16/21 [History] Docusate [Colace] 100 mg PO DAILY #30 08/22/21 [Rx] HYDROcodone/APAP 5-325MG [Grimes 5-325] 1 tab PO Q6HR PRN #28 tab 08/22/21 [Rx] Follow up Appointment(s)/Referral(s): Gerardo Gonzalez, MARQUIS [PHYSICIAN EMERGENCY VEHICLE TECHNICIAN] - 09/01/21 9:00 am None,Stated [Primary Care Provider] - 1-2 days Activity/Diet/Wound Care/Special Instructions: Follow up with your primary inspection engineer Dr. Matamoros when you [facility] to [facility] instructions: 1. Wound care and infection precautions, keep incision dry and covered while showering, no lotions, creams, moisturizers. No soaking, tubs, pools, hottubs. Do not scrub over the incision. 2. Weight-bear as tolerated with walker / cane until follow-up. 3. Ice and elevate when necessary. Do not exceed 20 minutes per hour with ice pack.. 4. Pain meds and anticoagulants per prescription. 5. Pain medication has potential to cause constipation. Increase oral fluid and fiber intake. Contact primary care provider if you have not had a bowel movement within 48 hours after discharge 6. No anti-inflammatory medication until discussed at first post operative visit, this including Motrin, Aleve, Mobic, Diclofenac. 7. Follow up in office at 2 weeks postop with Adrian Bautista PA-C / Gerardo Gonzalez PA-C 8. Follow up with your primary care doctor 7-10 days after discharge. 9. Contact [facility] with any questions, . Discharge Disposition: TRANSFER TO SNF/ECF
[2021-08-22] MEDS: HYDROcodone/APAP 5-325MG 1 EACH TAB PO PRN (14:02)
--- NOTE | 2021-08-22 14:11 | PN ---
PROGRESS NOTE DATE OF SERVICE: 08/22/2021 REASON FOR FOLLOWUP: Fever. INTERVAL HISTORY: The patient is currently afebrile. The patient is breathing comfortably on room air. The patient denies having any chest pain, shortness of breath or cough. No abdominal pain or diarrhea. PHYSICAL EXAMINATION: Blood pressure 157/64, pulse of 89, temperature 98.1. He is 98% on room air. General description is an elderly male lying in bed in no distress. RESPIRATORY SYSTEM: Unlabored breathing. Clear to auscultation anteriorly. HEART: S1, S2. Regular rate and rhythm. ABDOMEN: Soft. No tenderness. LABS: Hemoglobin is 8.4, white count 10.32, BUN of 26, creatinine 0.65. Urine is negative. Chest x-ray negative. DIAGNOSTIC IMPRESSION AND PLAN: Patient with an episode of fever in this patient who currently does not have any obvious focus of infection. Chest x-ray was clear. Urine is clear. Surgical site with no evidence of any cellulitis. The patient's fever resolved without antibiotic therapy; hence recommend no antibiotic at this point. Continue with supportive care. MMODL / IJN: [id number] /
[2021-08-22 14:32] VITALS: BMI 20.9
[2021-08-22 15:09] VITALS: BP 129/54; PULSE 97; RESP 16; TEMP 98.8
== END 2021-08-22 15:21 | DRG 522 ==
LOC: EC 15:01 → 4SSUR 16:11
PROVIDERS: ADMIT Orthopaedic Surgery; ATTEND Orthopaedic Surgery
PROC: 0SRS0JA Replacement of Left Hip Joint, Femoral Surface with Synthetic Substitute, Uncemented, Open Approach (ICD-10-PCS; principal; 2021-08-17 07:30)
DX: S72.012A Unspecified intracapsular fracture of left femur, initial encounter for closed fracture (principal); S22.20XA Unspecified fracture of sternum, initial encounter for closed fracture; W18.30XA Fall on same level, unspecified, initial encounter; W22.8XXA Striking against or struck by other objects, initial encounter; D72.829 Elevated white blood cell count, unspecified; E78.5 Hyperlipidemia, unspecified; I10 Essential (primary) hypertension; I25.10 Atherosclerotic heart disease of native coronary artery without angina pectoris; I25.2 Old myocardial infarction; I35.0 Nonrheumatic aortic (valve) stenosis; I44.0 Atrioventricular block, first degree; I45.10 Unspecified right bundle-branch block; Z20.822 Contact with and (suspected) exposure to COVID-19; I95.1 Orthostatic hypotension; R50.9 Fever, unspecified; Z79.02 Long term (current) use of antithrombotics/antiplatelets; Z79.82 Long term (current) use of aspirin; Z79.890 Hormone replacement therapy; Z79.899 Other long term (current) drug therapy; Z85.820 Personal history of malignant melanoma of skin; Z89.512 Acquired absence of left leg below knee; Z95.1 Presence of aortocoronary bypass graft; Z95.5 Presence of coronary angioplasty implant and graft; Z97.14 Presence of artificial left leg (complete) (partial)
CPT/HCPCS: 71045; 73501; 73502; 80048; 80053; 81001; 81003; 84145; 85025; 85610; 85730; 86140; 86850; 86900; 86901; 87040; 87635; 88305; 88311; 93005; 93306; 96374; 99285